=== PATIENT | male | born 1955 | race Caucasian/White ===

== ENCOUNTER 2025-04-05 19:44 | Inpatient (IN) | payer MEDICARE, OTHER ==
[~2025-04-05] VITALS: Ht 172.7 cm; Wt 64.6 kg
[2025-04-05] MEDS: LACTULOSE 20G/30ML UDC PO NR (03:00)
[2025-04-05 21:19] LABS: BASOPHILS % 0.2 % (0.0-2.0); EOSINOPHILS % 0.0 % (0.0-5.0); HEMATOCRIT. 29.3 % (42.0-52.0); HEMOGLOBIN. 9.5 g/dL (14.0-18.0); LYMPHOCYTES % 8.0 % (20.0-50.0); MEAN PLATELET VOLUME 8.0 fl (7.4-10.4); MONOCYTES % 7.5 % (2.0-8.0); NEUTROPHILS % 84.3 % (40.0-76.0); PLATELET 259 x1000/uL (130-400); RED BLOOD CELL COUNT 2.92 mill/uL (4.7-6.1); RED CELL DISTRIBUTION WIDTH 15.3 % (11.6-14.6)
[2025-04-05 21:36] LABS: CREATININE 1.9 mg/dL (0.6-1.3); UREA NITROGEN BLOOD 25 mg/dL (9-23)
[2025-04-05 21:37] LABS: ETHANOL BLOOD < 10 mg/dL (<10)
[2025-04-05 21:49] LABS: TROPONIN I HIGH SENSITIVITY 105 ng/L (3.0-53)
[2025-04-05] MEDS: SODIUM CHLORIDE 0.9% 1,000 ML IV ONE (22:49)
[2025-04-05] MEDS: CEFTRIAXONE 1GM/50ML 50 ML IV SCH (22:51)
[2025-04-05] MEDS: SODIUM CHLORIDE 0.9% (SEPSIS BOLUS) IV ONE (22:53)
[2025-04-05] MEDS: ASPIRIN 325MG EC TABLET PO SCH (22:56)
[2025-04-05] MEDS ORDERED: GUAIFENESIN 200MG/10ML SUGAR FREE UDC PO PRN (23:00)
[2025-04-05] MEDS ORDERED: IPRATROPIUM/ALBUTEROL 0.5-3(2.5)MG/3ML NEB HHN PRN (23:00)
[2025-04-05] MEDS ORDERED: CLONIDINE 0.1MG TABLET PO PRN (23:00)
[2025-04-05] MEDS ORDERED: ACETAMINOPHEN 325MG TABLET PO PRN (23:00)
[2025-04-05] MEDS ORDERED: DEXT 5%/0.45% NACL 1000ML 1,000 ML IV SCH (23:00)
[2025-04-05] MEDS ORDERED: DOCUSATE SODIUM 100MG CAPSULE PO PRN (23:00)
[2025-04-05 23:22] LABS: LACTIC ACID 3.6 mmol/L (0.4-2.0)
[2025-04-05] MEDS: AZITHROMYCIN 500MG/250ML 250 ML IV SCH (23:25)
[2025-04-05] MEDS: FAMOTIDINE 20MG/2ML VIAL IV SCH (23:43)
[2025-04-06] VITALS (39 sets, daily range): BP systolic 79–112; BP diastolic 49–88; PULSE 77–161; RESP 12–36; TEMP 35–37.3; O2SAT 45–100
[2025-04-06] MEDS ORDERED: LACTULOSE 20G/30ML UDC PO ONE
[2025-04-06 00:07] LABS: PHOSPHORUS 2.5 mg/dL (2.5-4.9)
[2025-04-06 00:08] LABS: CREATININE 1.9 mg/dL (0.6-1.3); TRIGLYCERIDE 135 mg/dL (0-150); UREA NITROGEN BLOOD 25 mg/dL (9-23)
[2025-04-06 00:09] LABS: ASPARTATE AMINOTRANSFERASE 91 IU/L (<34); LDL CHOLESTEROL 29 mg/dL (5-100)
[2025-04-06 00:10] LABS: BILIRUBIN DIRECT 0.6 mg/dL (<=3.0); BILIRUBIN TOTAL 1.0 mg/dL (0.1-1.0); PROTEIN TOTAL 5.7 g/dL (6.0-8.3)
[2025-04-06 00:12] LABS: T4 FREE 1.35 ng/dL (0.89-1.76)
[2025-04-06] MEDS ORDERED: HYDRALAZINE 20MG/ML VIAL IV SCH (00:30)
[2025-04-06 00:43] LABS: CLARITY URINE CLOUDY (CLEAR); COLOR URINE DARK YELLOW (YELLOW); GLUCOSE URINE NEGATIVE (NEGATIVE); KETONES URINE TRACE (NEGATIVE); LEUKOCYTE ESTERASE URINE 1+ (NEGATIVE); NITRITE URINE NEGATIVE (NEGATIVE); OCCULT BLOOD URINE 3+ (NEGATIVE); PH URINE 5.0 (4.5-8.0); PROTEIN URINE 2+ (NEGATIVE); SPECIFIC GRAVITY URINE 1.027 (1.005-1.030); UROBILINOGEN URINE 1.0 E.U./dL (0.2-1.0)
[2025-04-06] MEDS ORDERED: SODIUM BICARBONATE 8.4% 50MEQ/50ML SYR IV NR (00:45)
[2025-04-06] MEDS: SODIUM CHLORIDE 0.9% 1,000 ML IV ONE (00:52)
[2025-04-06] MEDS: MAGNESIUM 4 G PREMIX 100 ML IV NR (00:59)
[2025-04-06] MEDS: CALCIUM GLUCONATE 100MG/ML 10ML VIAL IV NR (00:59)
[2025-04-06] MEDS: SODIUM BICARBONATE 8.4% 50MEQ/50ML SYR IV NR ×3 (01:15→10:34)
[2025-04-06 01:17] LABS: *AMPHETAMINES SCREEN URINE NEGATIVE (NEGATIVE); *BARBITURATES SCREEN URINE NEGATIVE (NEGATIVE); *BENZODIAZEPINES SCREEN URINE NEGATIVE (NEGATIVE); *COCAINE SCREEN URINE NEGATIVE (NEGATIVE); CANNABINOID URINE SCREEN NEGATIVE (NEGATIVE); ECSTASY MDMA SCREEN URINE NEGATIVE (NEGATIVE); METHADONE URINE SCREEN NEGATIVE (NEGATIVE); OPIATES URINE SCREEN NEGATIVE (NEGATIVE); PHENCYCLIDINE URINE SCREEN NEGATIVE (NEGATIVE)
[2025-04-06] MEDS ORDERED: VANCOMYCIN 1GM/200ML PMX (BAXTER) IV NR (01:30)
[2025-04-06 01:40] LABS: SODIUM URINE RANDOM < 10 mEq/L
[2025-04-06] MEDS: NOREPINEPHRINE 8MG/250ML PMX 250 ML IV PRN (01:45)
[2025-04-06 01:50] LABS: INR 1.9
[2025-04-06] MEDS: PIPERACILLIN/TAZO 3.375G/50ML 50 ML IV SCH (02:00)
[2025-04-06] MEDS ORDERED: IPRATROPIUM/ALBUTEROL 0.5-3(2.5)MG/3ML NEB HHN SCH (02:00)
[2025-04-06 02:23] LABS: BACTERIA URINE 1+; RBC URINE 50-100 /hpf (0-2); SQUAMOUS EPITHELIAL CELL URINE 2+ /lpf (RARE/1+)
[2025-04-06 02:28] LABS: OSMOLALITY URINE 323 mOsm/kg (500-850)
[2025-04-06] MEDS: VANCOMYCIN 1GM/200ML PMX (BAXTER) IV NR (03:00)
[2025-04-06] MEDS: BLOOD SUGAR DIAGNOSTIC STRIP TEST SCH (04:00)
[2025-04-06] MEDS: FOLIC ACID 1 MG, THIAMINE HCL 100 MG, MVI, ADULT NO.1 10 ML in DEXTROSE 5% WATER 1,000 ML IV NR (04:00)
[2025-04-06] MEDS: SODIUM CHLORIDE 0.9% 1,000 ML IV SCH (05:07)
[2025-04-06] MEDS ORDERED: LIDOCAINE HCL 1% 10 MG/ML 10ML VIAL ONE (08:18)
[2025-04-06] MEDS ORDERED: ASPIRIN 81MG EC TABLET PO SCH (09:00)
[2025-04-06] MEDS: MULTIVITAMINS,THER W-MINERALS TABLET PO SCH (09:16)
[2025-04-06] MEDS: ENOXAPARIN 30MG/0.3ML SYR SUBCUT SCH (09:16)
[2025-04-06] MEDS: ASPIRIN 81MG EC TABLET PO SCH (09:16)
[2025-04-06] MEDS: FOLIC ACID 1MG TABLET PO SCH (09:16)
[2025-04-06] MEDS: THIAMINE HCL 100MG TABLET PO SCH (09:16)
[2025-04-06] MEDS: FERROUS SULFATE 325MG TABLET PO SCH (09:16)
[2025-04-06 11:16] LABS: HEMATOCRIT. 26.6 % (42.0-52.0); HEMOGLOBIN. 8.5 g/dL (14.0-18.0); MEAN PLATELET VOLUME 7.5 fl (7.4-10.4); PLATELET 233 x1000/uL (130-400); RED BLOOD CELL COUNT 2.67 mill/uL (4.7-6.1); RED CELL DISTRIBUTION WIDTH 15.0 % (11.6-14.6)
[2025-04-06 11:53] LABS: CREATININE 1.4 mg/dL (0.6-1.3); UREA NITROGEN BLOOD 19 mg/dL (9-23)
[2025-04-06] MEDS: SODIUM BICARBONATE 100 MEQ in DEXTROSE 5% WATER 900 ML IV SCH (12:08)
[2025-04-06] MEDS: VANCOMYCIN 1GM PMX (XELLIA) 200 ML IV SCH (12:19)
[2025-04-06 12:36] LABS: TROPONIN I HIGH SENSITIVITY 104 ng/L (3.0-53)
[2025-04-06 13:16] LABS: BAND% 7.0 % (1.0-6.0); LYMPHOCYTES % MANUAL 3.0 % (20.0-50.0); MONOCYTES % MANUAL 3.0 % (2.0-8.0); NEUTROPHILS % MANUAL 87.0 % (45.0-75.0)
[2025-04-06 13:17] LABS: PLATELET ESTIMATE NORMAL
[2025-04-06 13:18] LABS: HEPATITIS C AB NON REACTIVE (Neg) (Negative)
[2025-04-06] MEDS: MAGNESIUM 1 G PREMIX 100 ML IV NR (13:41)
[2025-04-06] MEDS: KCL 20MEQ/100ML PREMIX 100 ML IV NR (13:42)
[2025-04-06 15:08] LABS: TROPONIN I HIGH SENSITIVITY 95 ng/L (3.0-53)
[2025-04-06] MEDS: CALCIUM GLUCONATE 1GM PREMIX 50 ML IV NR (15:33)
[2025-04-06 15:54] LABS: TROPONIN I HIGH SENSITIVITY 119 ng/L (3.0-53)
[2025-04-06 17:43] LABS: CREATININE 1.5 mg/dL (0.6-1.3); UREA NITROGEN BLOOD 18 mg/dL (9-23)
[2025-04-06 18:02] LABS: TROPONIN I HIGH SENSITIVITY 137 ng/L (3.0-53)
[2025-04-06] MEDS: ACETAMINOPHEN 325MG TABLET PO PRN (18:03)
[2025-04-06] MEDS ORDERED: CALCIUM GLUCONATE 100MG/ML 10ML VIAL IV ONE (19:45)
[2025-04-06] MEDS: MAGNESIUM 1 G PREMIX 100 ML IV SCH (20:11)
[2025-04-06] MEDS: CALCIUM GLUCONATE 1GM PREMIX 50ML IV SCH (20:47)
[2025-04-06 21:16] LABS: TROPONIN I HIGH SENSITIVITY 162 ng/L (3.0-53)
[2025-04-07] VITALS (58 sets, daily range): BP systolic 84–122; BP diastolic 63–105; PULSE 86–126; RESP 15–33; TEMP 36.2–37.3; O2SAT 71–100
[2025-04-07 06:30] LABS: CREATININE 1.5 mg/dL (0.6-1.3); UREA NITROGEN BLOOD 20 mg/dL (9-23)
[2025-04-07 06:50] LABS: BASOPHILS % 0.0 % (0.0-2.0); EOSINOPHILS % 0.0 % (0.0-5.0); HEMATOCRIT. 26.8 % (42.0-52.0); HEMOGLOBIN. 8.5 g/dL (14.0-18.0); LYMPHOCYTES % 16.1 % (20.0-50.0); MEAN PLATELET VOLUME 8.0 fl (7.4-10.4); MONOCYTES % 12.1 % (2.0-8.0); NEUTROPHILS % 71.8 % (40.0-76.0); PLATELET 215 x1000/uL (130-400); RED BLOOD CELL COUNT 2.66 mill/uL (4.7-6.1); RED CELL DISTRIBUTION WIDTH 14.7 % (11.6-14.6)
[2025-04-07] MEDS ORDERED: NOREPINEPHRINE 8MG/250ML PMX 250 ML IV PRN (08:42)
[2025-04-07] MEDS: BLOOD SUGAR DIAGNOSTIC STRIP TEST SCH (08:44)
[2025-04-07] MEDS: POTASSIUM CHLORIDE 20MEQ/PACKET PO NR (08:47)
[2025-04-07] MEDS: CALCIUM 1250MG TABLET (500MG ELEMENTAL CALCIUM) PO SCH (08:48)
[2025-04-07] MEDS: TAMSULOSIN HCL 0.4MG SR CAPSULE PO SCH (08:48)
[2025-04-07] MEDS: CALCITRIOL 0.25MCG CAPSULE PO SCH (08:49)
[2025-04-07] MEDS: VANCOMYCIN 1G PREMIX 200 ML IV SCH (08:51)
[2025-04-07] MEDS: SODIUM BICARBONATE 650MG TABLET PO SCH (12:59)
[2025-04-07] MEDS: LACTATED RINGERS 1,000 ML IV SCH (18:57)
[2025-04-07 22:05] LABS: TROPONIN I HIGH SENSITIVITY 229 ng/L (3.0-53)
[2025-04-08] VITALS (33 sets, daily range): BP systolic 96–131; BP diastolic 70–112; PULSE 77–141; RESP 11–26; TEMP 36.2–36.9; O2SAT 90–100
[2025-04-08 05:40] LABS: BASOPHILS % 0.4 % (0.0-2.0); EOSINOPHILS % 0.1 % (0.0-5.0); HEMATOCRIT. 23.0 % (42.0-52.0); HEMOGLOBIN. 7.6 g/dL (14.0-18.0); LYMPHOCYTES % 22.2 % (20.0-50.0); MEAN PLATELET VOLUME 8.1 fl (7.4-10.4); MONOCYTES % 14.6 % (2.0-8.0); NEUTROPHILS % 62.7 % (40.0-76.0); PLATELET 158 x1000/uL (130-400); RED BLOOD CELL COUNT 2.33 mill/uL (4.7-6.1); RED CELL DISTRIBUTION WIDTH 15.0 % (11.6-14.6)
[2025-04-08 05:56] LABS: CREATININE 0.8 mg/dL (0.6-1.3); UREA NITROGEN BLOOD 14 mg/dL (9-23)
[2025-04-09] VITALS: BP 128/101; PULSE 123; RESP 20; TEMP 36.5; O2SAT 97
[2025-04-09 04:00] VITALS: BP 113/86; PULSE 74; RESP 19; TEMP 36.2; O2SAT 98
[2025-04-09] MEDS: DEXTROSE 50% WATER 50ML SYRINGE IV PRN (05:43)
[2025-04-09 08:00] VITALS: BP 119/83; PULSE 96; RESP 20; TEMP 36.2; O2SAT 98
[2025-04-09 11:29] LABS: PLATELET 166 x1000/uL (130-400); RED BLOOD CELL COUNT 2.40 mill/uL (4.7-6.1); RED CELL DISTRIBUTION WIDTH 15.2 % (11.6-14.6)
[2025-04-09 11:43] LABS: CREATININE 0.6 mg/dL (0.6-1.3); UREA NITROGEN BLOOD 10 mg/dL (9-23)
[2025-04-09 12:00] VITALS: BP 101/68; PULSE 97; RESP 20; TEMP 36.2; O2SAT 97
[2025-04-09 16:00] VITALS: BP 106/80; PULSE 92; RESP 20; TEMP 36.2; O2SAT 98
[2025-04-09 20:00] VITALS: BP 116/89; PULSE 84; RESP 18; TEMP 36.3; O2SAT 98
[2025-04-10 08:00] VITALS: BP 106/75; PULSE 101; RESP 20; TEMP 36.1; O2SAT 99
[2025-04-10 08:18] LABS: CREATININE 0.5 mg/dL (0.6-1.3); UREA NITROGEN BLOOD 6 mg/dL (9-23)
[2025-04-10] MEDS ORDERED: POTASSIUM CHLORIDE 40 MEQ in DEXT 5% WATER 230 ML IV ONE (09:00)
[2025-04-10 12:00] VITALS: BP 109/87; PULSE 89; RESP 18; TEMP 36.1; O2SAT 99
[2025-04-10 16:00] VITALS: BP 115/73; PULSE 89; RESP 19; TEMP 36.1; O2SAT 100
[2025-04-10 16:11] LABS: PLATELET 164 x1000/uL (130-400); RED BLOOD CELL COUNT 2.42 mill/uL (4.7-6.1); RED CELL DISTRIBUTION WIDTH 15.5 % (11.6-14.6)
[2025-04-10] MEDS: SODIUM CHLORIDE 0.45% 1,000 ML IV SCH (17:39)
[2025-04-10] MEDS: KCL 20MEQ/100ML X 2 FOR TOTAL KCL 40MEQ/200ML IV SCH ×2 (17:42→21:00)
[2025-04-10 20:00] VITALS: BP 120/92; PULSE 97; RESP 19; TEMP 36.3; O2SAT 98
[2025-04-11] VITALS: BP 140/109; PULSE 50; RESP 19; TEMP 36.4; O2SAT 97
[2025-04-11 04:00] VITALS: BP 125/95; PULSE 72; RESP 19; TEMP 36.2; O2SAT 95
[2025-04-11 07:09] LABS: CREATININE 0.5 mg/dL (0.6-1.3)
[2025-04-11 07:11] LABS: UREA NITROGEN BLOOD 5 mg/dL (9-23)
[2025-04-11 07:14] LABS: HEMATOCRIT. 23.5 % (42.0-52.0); HEMOGLOBIN. 7.7 g/dL (14.0-18.0); MEAN PLATELET VOLUME 7.7 fl (7.4-10.4); PLATELET 162 x1000/uL (130-400); RED BLOOD CELL COUNT 2.36 mill/uL (4.7-6.1); RED CELL DISTRIBUTION WIDTH 15.9 % (11.6-14.6)
[2025-04-11 08:00] VITALS: BP 122/91; PULSE 90; RESP 18; TEMP 35.8; O2SAT 97
[2025-04-11 12:00] VITALS: BP 125/95; PULSE 81; RESP 16; TEMP 36.2; O2SAT 96
[2025-04-11 16:33] LABS: LYMPHOCYTES % MANUAL 17.0 % (20.0-50.0); MONOCYTES % MANUAL 14.0 % (2.0-8.0); NEUTROPHILS % MANUAL 69.0 % (45.0-75.0); PLATELET ESTIMATE NORMAL
[2025-04-11 17:09] VITALS: BP 126/90; PULSE 99; RESP 16; TEMP 36.2; O2SAT 96
[2025-04-11 20:00] VITALS: BP 165/109; PULSE 102; RESP 20; TEMP 35.8; O2SAT 97
[2025-04-12] VITALS (7 sets, daily range): BP systolic 105–168; BP diastolic 70–100; PULSE 84–106; RESP 17–20; TEMP 35.5–36.4; O2SAT 96–99
[2025-04-12] MEDS: MAGNESIUM 1 G PREMIX 100 ML IV NR (05:36)
[2025-04-12] MEDS: MAGNESIUM 1 G PREMIX 100 ML IV SCH (15:00)
== END 2025-04-12 22:27 | DRG 871 ==
LOC: ER 19:44 → CVICU 22:11 → EDBEDREQ 22:27 → EDBEDREQTM 22:27 → ENRESERV 23:15 → EDBEDREQSVC 04-06 01:15 → ENRESERV 04-06 01:30 → 6WST 04-08 16:55
PROVIDERS: ADMIT Internal Medicine; ATTEND Internal Medicine
PROC: 02HV33Z Insertion of Infusion Device into Superior Vena Cava, Percutaneous Approach (ICD-10-PCS; principal; 2025-04-06)
PROC: B548ZZA Ultrasonography of Superior Vena Cava, Guidance (ICD-10-PCS; 2025-04-06)
DX: A41.9 Sepsis, unspecified organism (principal); E43 Unspecified severe protein-calorie malnutrition; L89.153 Pressure ulcer of sacral region, stage 3; N17.0 Acute kidney failure with tubular necrosis; I21.A1 Myocardial infarction type 2; R65.21 Severe sepsis with septic shock; G92.8 Other toxic encephalopathy; G82.50 Quadriplegia, unspecified; J96.01 Acute respiratory failure with hypoxia; I50.33 Acute on chronic diastolic (congestive) heart failure; N12 Tubulo-interstitial nephritis, not specified as acute or chronic; M62.82 Rhabdomyolysis; E87.0 Hyperosmolality and hypernatremia; D68.9 Coagulation defect, unspecified; I13.0 Hypertensive heart and chronic kidney disease with heart failure and stage 1 through stage 4 chronic kidney disease, or unspecified chronic kidney disease; E72.20 Disorder of urea cycle metabolism, unspecified; Z68.1 Body mass index [BMI] 19.9 or less, adult; R64 Cachexia; D63.1 Anemia in chronic kidney disease; E83.51 Hypocalcemia; E83.42 Hypomagnesemia; N18.9 Chronic kidney disease, unspecified; R62.7 Adult failure to thrive; N40.0 Benign prostatic hyperplasia without lower urinary tract symptoms; K21.9 Gastro-esophageal reflux disease without esophagitis; E87.6 Hypokalemia; D53.9 Nutritional anemia, unspecified; G62.1 Alcoholic polyneuropathy; I48.91 Unspecified atrial fibrillation; R73.9 Hyperglycemia, unspecified; D72.810 Lymphocytopenia; D50.9 Iron deficiency anemia, unspecified; F10.20 Alcohol dependence, uncomplicated; N28.1 Cyst of kidney, acquired; K76.0 Fatty (change of) liver, not elsewhere classified; M47.812 Spondylosis without myelopathy or radiculopathy, cervical region; M50.30 Other cervical disc degeneration, unspecified cervical region; R13.10 Dysphagia, unspecified; S14.129A Central cord syndrome at unspecified level of cervical spinal cord, initial encounter; X58.XXXA Exposure to other specified factors, initial encounter; Y93.89 Activity, other specified; Y92.89 Other specified places as the place of occurrence of the external cause; Y99.8 Other external cause status
CPT/HCPCS: 36415; 36573; 71045; 71250; 76770; 80048; 80061; 80076; 80305; 80307; 80320; 80329; 81003; 82140; 82306; 82330; 82533; 82550; 82607; 82728; 82962; 83036; 83540; 83550; 83605; 83735; 83880; 83930; 83935; 83970; 84100; 84134; 84145; 84300; 84439; 84443; 84484; 85025; 85027; 85044; 85379; 86705; 86850; 86900; 87340; 92523; 92610; 93005; 93306; 93970; 93971; 97116; 97162; 97166; 97530; 97535; 99291; A4606; C1725; J0456; J0610; J0696; J1308; J1650; J2003; J2543; J3370; J3411; J3475; J3480; J3490; J7030; J7070; J7120; G0480

== ENCOUNTER 2025-04-12 22:25 | Inpatient (IN) | payer MEDICARE, OTHER ==
[~2025-04-12] VITALS: Ht 172.7 cm; Wt 64.5 kg
[2025-04-12 22:45] VITALS: BP 114/91; PULSE 91; RESP 20; TEMP 36.6404
[2025-04-12] MEDS ORDERED: DOCUSATE SODIUM 100MG CAPSULE PO PRN (23:30)
[2025-04-12] MEDS ORDERED: GUAIFENESIN 200MG/10ML SUGAR FREE UDC PO PRN (23:30)
[2025-04-12] MEDS ORDERED: ACETAMINOPHEN 325MG TABLET PO PRN (23:30)
[2025-04-13] MEDS: BLOOD SUGAR DIAGNOSTIC STRIP TEST SCH (07:00)
[2025-04-13 08:00] VITALS: BP 129/72; PULSE 90; RESP 18; TEMP 36.8; O2SAT 98
[2025-04-13] MEDS ORDERED: ENOXAPARIN 40MG/0.4ML SYR SUBCUT SCH (09:00)
[2025-04-13] MEDS: ASPIRIN 81MG TABLET PO SCH (09:26)
[2025-04-13] MEDS: CALCIUM 1250MG TABLET (500MG ELEMENTAL CALCIUM) PO SCH (09:26)
[2025-04-13] MEDS: FOLIC ACID 1MG TABLET PO SCH (09:26)
[2025-04-13] MEDS: THIAMINE HCL 100MG TABLET PO SCH (09:27)
[2025-04-13] MEDS: CALCITRIOL 0.25MCG CAPSULE PO SCH (09:27)
[2025-04-13] MEDS: FAMOTIDINE 20MG/2ML VIAL IV SCH (09:28)
[2025-04-13] MEDS: FERROUS SULFATE 325MG TABLET PO SCH (09:28)
[2025-04-13] MEDS: ACETAMINOPHEN 325MG TABLET PO PRN (09:38)
[2025-04-13] MEDS: ENOXAPARIN 30MG/0.3ML SYR SUBCUT SCH (09:38)
[2025-04-13] MEDS: MULTIVITAMINS,THER W-MINERALS TABLET PO SCH (09:38)
[2025-04-13] MEDS: TAMSULOSIN HCL 0.4MG SR CAPSULE PO SCH (10:47)
[2025-04-13] MEDS: SODIUM BICARBONATE 650MG TABLET PO SCH (10:47)
[2025-04-13 20:00] VITALS: BP 108/82; PULSE 82; RESP 17; TEMP 36.4; O2SAT 92
[2025-04-13] MEDS: FLUTICASONE PROPIONATE 50MCG/SPRAY BOTTLE BOTHNSTRLS SCH (21:13)
[2025-04-13] MEDS: HEPARIN 5000 UNITS/ML VIAL SUBCUT SCH (21:13)
[2025-04-13 22:23] LABS: BASOPHILS % 0.4 % (0.0-2.0); EOSINOPHILS % 1.3 % (0.0-5.0); HEMATOCRIT. 23.2 % (42.0-52.0); HEMOGLOBIN. 7.4 g/dL (14.0-18.0); LYMPHOCYTES % 23.6 % (20.0-50.0); MEAN PLATELET VOLUME 8.3 fl (7.4-10.4); MONOCYTES % 12.2 % (2.0-8.0); NEUTROPHILS % 62.5 % (40.0-76.0); PLATELET 199 x1000/uL (130-400); RED BLOOD CELL COUNT 2.26 mill/uL (4.7-6.1); RED CELL DISTRIBUTION WIDTH 15.7 % (11.6-14.6)
[2025-04-13 22:41] LABS: CREATININE 0.8 mg/dL (0.6-1.3); UREA NITROGEN BLOOD 7 mg/dL (9-23)
[2025-04-13 22:43] LABS: ASPARTATE AMINOTRANSFERASE 41 IU/L (<34); BILIRUBIN TOTAL 0.6 mg/dL (0.1-1.0); PROTEIN TOTAL 4.7 g/dL (6.0-8.3)
[2025-04-14 06:53] LABS: BASOPHILS % 0.2 % (0.0-2.0); EOSINOPHILS % 1.0 % (0.0-5.0); HEMATOCRIT. 22.6 % (42.0-52.0); HEMOGLOBIN. 7.3 g/dL (14.0-18.0); LYMPHOCYTES % 21.7 % (20.0-50.0); MEAN PLATELET VOLUME 8.0 fl (7.4-10.4); MONOCYTES % 12.1 % (2.0-8.0); NEUTROPHILS % 65.0 % (40.0-76.0); PLATELET 182 x1000/uL (130-400); RED BLOOD CELL COUNT 2.28 mill/uL (4.7-6.1); RED CELL DISTRIBUTION WIDTH 15.5 % (11.6-14.6)
[2025-04-14 07:23] LABS: UREA NITROGEN BLOOD 7 mg/dL (9-23)
[2025-04-14 07:25] LABS: ASPARTATE AMINOTRANSFERASE 37 IU/L (<34); BILIRUBIN TOTAL 0.7 mg/dL (0.1-1.0); FOLIC ACID (FOLATE) SERUM 8.33 ng/mL (>5.38); PROTEIN TOTAL 4.2 g/dL (6.0-8.3)
[2025-04-14 07:51] LABS: VITAMIN B12 SERUM > 2000 pg/mL (211-911)
[2025-04-14 07:55] LABS: CREATININE 0.4 mg/dL (0.6-1.3)
[2025-04-14 08:00] VITALS: BP 113/74; PULSE 67; RESP 17; TEMP 36.3; O2SAT 100
[2025-04-14 08:22] LABS: CLARITY URINE CLOUDY (CLEAR); COLOR URINE DARK YELLOW (YELLOW); GLUCOSE URINE NEGATIVE (NEGATIVE); PH URINE 5.5 (4.5-8.0); PROTEIN URINE 1+ (NEGATIVE); SPECIFIC GRAVITY URINE 1.020 (1.005-1.030)
[2025-04-14 08:23] LABS: KETONES URINE TRACE (NEGATIVE); LEUKOCYTE ESTERASE URINE NEGATIVE (NEGATIVE); NITRITE URINE NEGATIVE (NEGATIVE); OCCULT BLOOD URINE 2+ (NEGATIVE); UROBILINOGEN URINE 0.2 E.U./dL (0.2-1.0)
[2025-04-14 09:26] LABS: HYALINE CASTS URINE TNTC /lpf
[2025-04-14 09:28] LABS: FINE GRANULAR CASTS URINE 0-5 /lpf; SQUAMOUS EPITHELIAL CELL URINE FEW /lpf (RARE/1+)
[2025-04-14 09:30] LABS: BACTERIA URINE TRACE; CALCIUM OXALATE CRYSTALS URINE 2+ /lpf; WBC URINE 0-2 /hpf (0-2)
[2025-04-14] MEDS ORDERED: NALOXONE HCL 0.4MG/ML VIAL IV PRN (10:45)
[2025-04-14] MEDS: HYDROCODONE/ACETAMINOPHEN 5/325MG TABLET PO PRN (17:50)
[2025-04-14 20:00] VITALS: BP 108/82; PULSE 82; RESP 18; TEMP 36.4; O2SAT 98
[2025-04-15 08:00] VITALS: BP 115/85; PULSE 84; RESP 18; TEMP 36.4; O2SAT 98
[2025-04-15 10:55] LABS: BASOPHILS % 0.5 % (0.0-2.0); EOSINOPHILS % 0.7 % (0.0-5.0); HEMATOCRIT. 31.0 % (42.0-52.0); HEMOGLOBIN. 9.5 g/dL (14.0-18.0); LYMPHOCYTES % 23.9 % (20.0-50.0); MEAN PLATELET VOLUME 7.8 fl (7.4-10.4); MONOCYTES % 9.7 % (2.0-8.0); NEUTROPHILS % 65.2 % (40.0-76.0); PLATELET 225 x1000/uL (130-400); RED BLOOD CELL COUNT 2.93 mill/uL (4.7-6.1); RED CELL DISTRIBUTION WIDTH 16.3 % (11.6-14.6)
[2025-04-15 11:06] LABS: INR 1.3
[2025-04-15 11:10] LABS: CREATININE 0.5 mg/dL (0.6-1.3); UREA NITROGEN BLOOD 7 mg/dL (9-23)
[2025-04-15 11:12] LABS: ASPARTATE AMINOTRANSFERASE 41 IU/L (<34); BILIRUBIN DIRECT 0.3 mg/dL (<=3.0); BILIRUBIN TOTAL 0.7 mg/dL (0.1-1.0); PROTEIN TOTAL 4.9 g/dL (6.0-8.3)
[2025-04-15 13:10] LABS: HEPATITIS A AB IGM NEGATIVE (Negative)
[2025-04-15 13:11] LABS: HEPATITIS B CORE AB IGM NEGATIVE (Negative)
[2025-04-15 13:39] LABS: HEPATITIS C AB NON REACTIVE (Neg) (Negative)
[2025-04-15] MEDS: LACTULOSE 20G/30ML UDC PO SCH (13:53)
[2025-04-15 20:00] VITALS: BP 117/86; PULSE 94; RESP 18; TEMP 36.5; O2SAT 98
[2025-04-16 08:00] VITALS: BP 117/91; PULSE 94; RESP 17; TEMP 36.5; O2SAT 97
[2025-04-16 20:00] VITALS: BP 121/85; PULSE 90; RESP 18; TEMP 36.7; O2SAT 98
[2025-04-16 21:22] LABS: BASOPHILS % 1.1 % (0.0-2.0); EOSINOPHILS % 0.7 % (0.0-5.0); HEMATOCRIT. 23.4 % (42.0-52.0); HEMOGLOBIN. 7.4 g/dL (14.0-18.0); LYMPHOCYTES % 18.5 % (20.0-50.0); MEAN PLATELET VOLUME 8.7 fl (7.4-10.4); MONOCYTES % 10.0 % (2.0-8.0); NEUTROPHILS % 69.7 % (40.0-76.0); PLATELET 189 x1000/uL (130-400); RED BLOOD CELL COUNT 2.30 mill/uL (4.7-6.1); RED CELL DISTRIBUTION WIDTH 15.5 % (11.6-14.6)
[2025-04-16 21:37] LABS: CREATININE 0.5 mg/dL (0.6-1.3); UREA NITROGEN BLOOD 9 mg/dL (9-23)
[2025-04-17 08:00] VITALS: BP 115/85; PULSE 93; RESP 19; TEMP 36.6; O2SAT 98
[2025-04-17 20:00] VITALS: BP 133/69; PULSE 89; RESP 18; TEMP 36.1; O2SAT 97
[2025-04-18 08:00] VITALS: BP 133/94; PULSE 90; RESP 20; TEMP 36.4; O2SAT 98
[2025-04-18] MEDS: FUROSEMIDE 40MG/4ML VIAL IVP SCH (11:19)
[2025-04-18] MEDS: LACTULOSE 20G/30ML UDC PO SCH (12:53)
[2025-04-18] MEDS: PANTOPRAZOLE SODIUM 40 MG/VIAL IV SCH (12:53)
[2025-04-18 14:50] LABS: BASOPHILS % 0.4 % (0.0-2.0); EOSINOPHILS % 0.6 % (0.0-5.0); HEMATOCRIT. 25.3 % (42.0-52.0); HEMOGLOBIN. 7.8 g/dL (14.0-18.0); LYMPHOCYTES % 17.5 % (20.0-50.0); MEAN PLATELET VOLUME 8.1 fl (7.4-10.4); MONOCYTES % 10.1 % (2.0-8.0); NEUTROPHILS % 71.4 % (40.0-76.0); PLATELET 246 x1000/uL (130-400); RED BLOOD CELL COUNT 2.47 mill/uL (4.7-6.1); RED CELL DISTRIBUTION WIDTH 15.7 % (11.6-14.6)
[2025-04-18 15:09] LABS: CREATININE 0.6 mg/dL (0.6-1.3); UREA NITROGEN BLOOD 9 mg/dL (9-23)
[2025-04-18 15:11] LABS: ASPARTATE AMINOTRANSFERASE 31 IU/L (<34); BILIRUBIN TOTAL 0.5 mg/dL (0.1-1.0); PROTEIN TOTAL 4.7 g/dL (6.0-8.3)
[2025-04-18 20:00] VITALS: BP 98/65; PULSE 87; RESP 18; TEMP 35.9; O2SAT 100
[2025-04-19 06:30] LABS: BASOPHILS % 0.4 % (0.0-2.0); EOSINOPHILS % 0.8 % (0.0-5.0); HEMATOCRIT. 23.1 % (42.0-52.0); HEMOGLOBIN. 7.4 g/dL (14.0-18.0); LYMPHOCYTES % 20.3 % (20.0-50.0); MEAN PLATELET VOLUME 8.2 fl (7.4-10.4); MONOCYTES % 13.7 % (2.0-8.0); NEUTROPHILS % 64.8 % (40.0-76.0); PLATELET 194 x1000/uL (130-400); RED BLOOD CELL COUNT 2.26 mill/uL (4.7-6.1); RED CELL DISTRIBUTION WIDTH 15.8 % (11.6-14.6)
[2025-04-19 06:56] LABS: CREATININE 0.6 mg/dL (0.6-1.3); UREA NITROGEN BLOOD 10 mg/dL (9-23)
[2025-04-19 06:58] LABS: ASPARTATE AMINOTRANSFERASE 29 IU/L (<34); BILIRUBIN TOTAL 0.5 mg/dL (0.1-1.0); PROTEIN TOTAL 4.4 g/dL (6.0-8.3)
[2025-04-19 08:00] VITALS: BP 122/95; PULSE 89; RESP 17; TEMP 36.5; O2SAT 99
[2025-04-19 20:00] VITALS: BP 133/100; PULSE 92; RESP 16; TEMP 36.1; O2SAT 100
[2025-04-20 08:00] VITALS: BP 108/61; PULSE 75; RESP 18; TEMP 35.6; O2SAT 99
[2025-04-20] MEDS: FUROSEMIDE 40MG TABLET PO SCH (08:36)
[2025-04-20] MEDS: HYDROCODONE/ACETAMINOPHEN 5/325MG TABLET PO PRN (17:31)
[2025-04-20 20:00] VITALS: BP 109/76; PULSE 83; RESP 19; TEMP 36.1; O2SAT 99
[2025-04-20 22:41] LABS: CREATININE 1.2 mg/dL (0.6-1.3); UREA NITROGEN BLOOD 14 mg/dL (9-23)
[2025-04-20 22:43] LABS: ASPARTATE AMINOTRANSFERASE 36 IU/L (<34); BILIRUBIN TOTAL 0.3 mg/dL (0.1-1.0); PROTEIN TOTAL 4.5 g/dL (6.0-8.3)
[2025-04-21 03:58] LABS: BASOPHILS % 0.5 % (0.0-2.0); EOSINOPHILS % 1.1 % (0.0-5.0); HEMATOCRIT. 24.7 % (42.0-52.0); HEMOGLOBIN. 7.9 g/dL (14.0-18.0); LYMPHOCYTES % 22.6 % (20.0-50.0); MEAN PLATELET VOLUME 9.2 fl (7.4-10.4); MONOCYTES % 13.2 % (2.0-8.0); NEUTROPHILS % 62.6 % (40.0-76.0); PLATELET 192 x1000/uL (130-400); RED BLOOD CELL COUNT 2.43 mill/uL (4.7-6.1); RED CELL DISTRIBUTION WIDTH 15.6 % (11.6-14.6)
[2025-04-21 08:00] VITALS: BP 149/79; PULSE 89; RESP 19; TEMP 36.7; O2SAT 98
[2025-04-21 09:23] LABS: BASOPHILS % 0.4 % (0.0-2.0); EOSINOPHILS % 0.8 % (0.0-5.0); HEMATOCRIT. 25.9 % (42.0-52.0); HEMOGLOBIN. 8.4 g/dL (14.0-18.0); LYMPHOCYTES % 20.8 % (20.0-50.0); MEAN PLATELET VOLUME 8.5 fl (7.4-10.4); MONOCYTES % 7.6 % (2.0-8.0); NEUTROPHILS % 70.4 % (40.0-76.0); PLATELET 234 x1000/uL (130-400); RED BLOOD CELL COUNT 2.55 mill/uL (4.7-6.1); RED CELL DISTRIBUTION WIDTH 15.6 % (11.6-14.6)
[2025-04-21 09:38] LABS: CREATININE 1.2 mg/dL (0.6-1.3); UREA NITROGEN BLOOD 17 mg/dL (9-23)
[2025-04-21 09:40] LABS: ASPARTATE AMINOTRANSFERASE 37 IU/L (<34); BILIRUBIN TOTAL 0.4 mg/dL (0.1-1.0); PROTEIN TOTAL 4.6 g/dL (6.0-8.3)
[2025-04-21 20:00] VITALS: BP 116/89; PULSE 72; RESP 16; TEMP 37.1; O2SAT 96
[2025-04-21 23:33] VITALS: BP 116/89; PULSE 72; RESP 16; TEMP 37.1; O2SAT 96
[2025-04-22 08:00] VITALS: BP 113/87; PULSE 85; RESP 17; TEMP 37.1; O2SAT 95
[2025-04-22 09:09] LABS: BASOPHILS % 0.6 % (0.0-2.0); EOSINOPHILS % 1.4 % (0.0-5.0); HEMATOCRIT. 26.2 % (42.0-52.0); HEMOGLOBIN. 8.3 g/dL (14.0-18.0); LYMPHOCYTES % 20.5 % (20.0-50.0); MEAN PLATELET VOLUME 9.2 fl (7.4-10.4); MONOCYTES % 7.8 % (2.0-8.0); NEUTROPHILS % 69.7 % (40.0-76.0); PLATELET 218 x1000/uL (130-400); RED BLOOD CELL COUNT 2.56 mill/uL (4.7-6.1); RED CELL DISTRIBUTION WIDTH 15.8 % (11.6-14.6)
[2025-04-22 09:28] LABS: CREATININE 0.9 mg/dL (0.6-1.3); UREA NITROGEN BLOOD 15 mg/dL (9-23)
[2025-04-22 20:00] VITALS: BP 102/81; PULSE 74; RESP 18; TEMP 36.8; O2SAT 97
[2025-04-23 08:00] VITALS: BP 101/75; PULSE 87; RESP 20; TEMP 35.6; O2SAT 100
[2025-04-23] MEDS: DEXTROSE 50% WATER 50ML SYRINGE IV PRN (12:15)
[2025-04-23 20:00] VITALS: BP 114/85; PULSE 66; RESP 18; TEMP 36.6; O2SAT 98
[2025-04-24 08:00] VITALS: PULSE 68; RESP 18; TEMP 35.6; O2SAT 100
[2025-04-24 12:03] LABS: CREATININE 0.6 mg/dL (0.6-1.3); UREA NITROGEN BLOOD 13 mg/dL (9-23)
[2025-04-24 20:00] VITALS: BP 114/76; PULSE 66; RESP 18; TEMP 36.1; O2SAT 98
[2025-04-24] MEDS: SILVER SULFADIAZINE 1% CREAM 25GM TOP SCH (22:49)
[2025-04-25 07:04] LABS: CREATININE 0.6 mg/dL (0.6-1.3)
[2025-04-25 07:06] LABS: UREA NITROGEN BLOOD 15 mg/dL (9-23)
[2025-04-25 07:11] LABS: BASOPHILS % 0.1 % (0.0-2.0); EOSINOPHILS % 1.3 % (0.0-5.0); HEMATOCRIT. 27.0 % (42.0-52.0); HEMOGLOBIN. 8.7 g/dL (14.0-18.0); LYMPHOCYTES % 15.2 % (20.0-50.0); MEAN PLATELET VOLUME 8.3 fl (7.4-10.4); MONOCYTES % 8.5 % (2.0-8.0); NEUTROPHILS % 74.9 % (40.0-76.0); PLATELET 179 x1000/uL (130-400); RED BLOOD CELL COUNT 2.66 mill/uL (4.7-6.1); RED CELL DISTRIBUTION WIDTH 15.3 % (11.6-14.6)
[2025-04-25 08:00] VITALS: BP 110/82; PULSE 63; RESP 18; TEMP 36.1; O2SAT 100
[2025-04-25] MEDS ORDERED: SODIUM CHLORIDE 0.45% 500 ML IV ONE (08:00)
[2025-04-25] MEDS: FUROSEMIDE 20MG TABLET PO SCH (08:17)
[2025-04-25 12:48] VITALS: BP 105/59; PULSE 67; O2SAT 94
== END 2025-04-25 12:50 | disposition short-term general hospital (02) | DRG 91 ==
PROVIDERS: ADMIT Physical Medicine & Rehabilitation Spinal Cord Injury Medicine; ATTEND Internal Medicine
DX: G92.8 Other toxic encephalopathy (principal); A41.9 Sepsis, unspecified organism; L89.153 Pressure ulcer of sacral region, stage 3; E43 Unspecified severe protein-calorie malnutrition; G82.50 Quadriplegia, unspecified; I21.4 Non-ST elevation (NSTEMI) myocardial infarction; N17.0 Acute kidney failure with tubular necrosis; R65.21 Severe sepsis with septic shock; I50.30 Unspecified diastolic (congestive) heart failure; M62.82 Rhabdomyolysis; I13.0 Hypertensive heart and chronic kidney disease with heart failure and stage 1 through stage 4 chronic kidney disease, or unspecified chronic kidney disease; E72.20 Disorder of urea cycle metabolism, unspecified; E87.0 Hyperosmolality and hypernatremia; E87.20 Acidosis, unspecified; N39.0 Urinary tract infection, site not specified; D68.9 Coagulation defect, unspecified; L97.419 Non-pressure chronic ulcer of right heel and midfoot with unspecified severity; L97.429 Non-pressure chronic ulcer of left heel and midfoot with unspecified severity; F10.20 Alcohol dependence, uncomplicated; R13.10 Dysphagia, unspecified; G62.1 Alcoholic polyneuropathy; R53.81 Other malaise; R26.9 Unspecified abnormalities of gait and mobility; D53.9 Nutritional anemia, unspecified; E20.9 Hypoparathyroidism, unspecified; E86.9 Volume depletion, unspecified; E87.6 Hypokalemia; G89.29 Other chronic pain; I25.2 Old myocardial infarction; K21.9 Gastro-esophageal reflux disease without esophagitis; K29.70 Gastritis, unspecified, without bleeding; M47.812 Spondylosis without myelopathy or radiculopathy, cervical region; M47.816 Spondylosis without myelopathy or radiculopathy, lumbar region; M51.369 Other intervertebral disc degeneration, lumbar region without mention of lumbar back pain or lower extremity pain; N18.9 Chronic kidney disease, unspecified; N40.0 Benign prostatic hyperplasia without lower urinary tract symptoms; E61.1 Iron deficiency; I89.0 Lymphedema, not elsewhere classified; K57.30 Diverticulosis of large intestine without perforation or abscess without bleeding; K76.0 Fatty (change of) liver, not elsewhere classified; S14.129D Central cord syndrome at unspecified level of cervical spinal cord, subsequent encounter; Z78.1 Physical restraint status
CPT/HCPCS: 36415; 70496; 70498; 74176; 76700; 80048; 80053; 80076; 81003; 82140; 82270; 82306; 82550; 82607; 82728; 82746; 82962; 83036; 83540; 83550; 84134; 84145; 84443; 85025; 85044; 86705; 86709; 87340; 92523; 92610; 93005; 93923; 93970; 97110; 97112; 97116; 97140; 97162; 97166; 97530; 97535; A4606; J1308; J1644; J1650; J1938; J2470; A5200

== ENCOUNTER 2025-06-05 06:28 | Inpatient (IN) | payer MEDICARE, OTHER ==
[~2025-06-05] VITALS: Ht 172.7 cm; Wt 84.4 kg
[2025-06-05] VITALS (56 sets, daily range): BP systolic 79–121; BP diastolic 12–95; PULSE 64–92; RESP 13–24; TEMP 33.8–36.1; O2SAT 100
[2025-06-05] MEDS ORDERED: CEFEPIME 2GM IN DEXT 5% 100ML IV ONE (06:45)
[2025-06-05] MEDS: CEFEPIME 2,000MG in DEXT 5% WATER 100ML IV SCH (07:00)
[2025-06-05] MEDS: LACTATED RINGERS 1,000 ML IV SCH (07:17)
[2025-06-05] MEDS: NOREPINEPHRINE 8MG/250ML PMX 250 ML IV ONE ×2 (07:26→10:11)
[2025-06-05] MEDS ORDERED: LACTATED RINGERS 500 ML IV SCH (07:30)
[2025-06-05 07:45] LABS: HEMATOCRIT. 25.8 % (42.0-52.0); HEMOGLOBIN. 7.9 g/dL (14.0-18.0); MEAN PLATELET VOLUME 6.8 fl (7.4-10.4); PLATELET 135 x1000/uL (130-400); RED BLOOD CELL COUNT 2.71 mill/uL (4.7-6.1); RED CELL DISTRIBUTION WIDTH 17.2 % (11.6-14.6)
[2025-06-05 08:01] LABS: INR 1.6
[2025-06-05 08:07] LABS: UREA NITROGEN BLOOD 63 mg/dL (9-23)
[2025-06-05 08:09] LABS: ASPARTATE AMINOTRANSFERASE 11 IU/L (<34); BILIRUBIN DIRECT < 0.1 mg/dL (<=3.0); BILIRUBIN TOTAL < 0.2 mg/dL (0.1-1.0); PROTEIN TOTAL 5.0 g/dL (6.0-8.3)
[2025-06-05 08:17] LABS: CREATININE 5.6 mg/dL (0.6-1.3)
[2025-06-05 08:49] LABS: BAND% 8.0 % (1.0-6.0); LYMPHOCYTES % MANUAL 3.0 % (20.0-50.0); MONOCYTES % MANUAL 2.0 % (2.0-8.0); NEUTROPHILS % MANUAL 87.0 % (45.0-75.0); NUCLEATED RED BLOOD CELLS 4 /100 WBC; PLATELET ESTIMATE NORMAL
[2025-06-05] MEDS ORDERED: MAGNESIUM/ALUMINUM HYDROXIDE/SIMETHICONE 30ML UDC PO PRN (09:30)
[2025-06-05] MEDS ORDERED: CEFEPIME 2GM IN DEXT 5% 100ML IV SCH (09:30)
[2025-06-05] MEDS: INSULIN LISPRO 100 UNITS/ML SUBCUT SCH (09:30)
[2025-06-05] MEDS ORDERED: ONDANSETRON HCL 4MG/2ML INJ IV PRN (09:30)
[2025-06-05] MEDS ORDERED: CLONIDINE 0.1MG TABLET PO PRN (09:30)
[2025-06-05] MEDS ORDERED: GUAIFENESIN 200MG/10ML SUGAR FREE UDC PO PRN (09:30)
[2025-06-05] MEDS: BLOOD SUGAR DIAGNOSTIC STRIP TEST SCH (10:10)
[2025-06-05] MEDS: LEVETIRACETAM 1000MG PREMIX 100 ML IV SCH (10:10)
[2025-06-05] MEDS: PANTOPRAZOLE SODIUM 40 MG/VIAL IV SCH (10:10)
[2025-06-05 11:15] LABS: PLATELET 133 x1000/uL (130-400); RED BLOOD CELL COUNT 2.76 mill/uL (4.7-6.1); RED CELL DISTRIBUTION WIDTH 17.9 % (11.6-14.6)
[2025-06-05] MEDS ORDERED: MORPHINE SULFATE 2 MG/ML INJ (NOT FOR IM USE) IV NR (11:30)
[2025-06-05 11:31] LABS: INR 1.7; UREA NITROGEN BLOOD 51 mg/dL (9-23)
[2025-06-05 11:43] LABS: CREATININE 5.4 mg/dL (0.6-1.3)
[2025-06-05 11:44] LABS: PHOSPHORUS 10.7 mg/dL (2.5-4.9)
[2025-06-05 11:45] LABS: CLARITY URINE CLEAR (CLEAR); COLOR URINE YELLOW (YELLOW); GLUCOSE URINE NEGATIVE (NEGATIVE); KETONES URINE TRACE (NEGATIVE); LEUKOCYTE ESTERASE URINE 1+ (NEGATIVE); NITRITE URINE NEGATIVE (NEGATIVE); OCCULT BLOOD URINE 2+ (NEGATIVE); PH URINE 5.5 (4.5-8.0); PROTEIN URINE NEGATIVE (NEGATIVE); SPECIFIC GRAVITY URINE 1.015 (1.005-1.030); UROBILINOGEN URINE 0.2 E.U./dL (0.2-1.0)
[2025-06-05] MEDS: SODIUM BICARBONATE 150 MEQ in DEXTROSE 5% WATER 850 ML IV ONE (11:59)
[2025-06-05] MEDS: VANCOMYCIN 1.5GM PMX (XELLIA) 300 ML IV SCH (11:59)
[2025-06-05 12:00] LABS: *AMPHETAMINES SCREEN URINE NEGATIVE (NEGATIVE); *BARBITURATES SCREEN URINE NEGATIVE (NEGATIVE); *BENZODIAZEPINES SCREEN URINE NEGATIVE (NEGATIVE); *COCAINE SCREEN URINE NEGATIVE (NEGATIVE)
[2025-06-05 12:01] LABS: CANNABINOID URINE SCREEN NEGATIVE (NEGATIVE); ECSTASY MDMA SCREEN URINE NEGATIVE (NEGATIVE); METHADONE URINE SCREEN NEGATIVE (NEGATIVE); OPIATES URINE SCREEN NEGATIVE (NEGATIVE); PHENCYCLIDINE URINE SCREEN NEGATIVE (NEGATIVE)
[2025-06-05] MEDS: ENOXAPARIN 80MG/0.8ML SYR SUBCUT SCH (12:02)
[2025-06-05 12:09] LABS: SQUAMOUS EPITHELIAL CELL URINE FEW /lpf (RARE/1+)
[2025-06-05 12:13] LABS: BACTERIA URINE NONE SEEN
[2025-06-05 12:14] LABS: HEPATITIS C AB NON REACTIVE (Neg) (Negative)
[2025-06-05 13:44] LABS: BG BASE EXCESS -24.8 mmol/L (-2.0-3.0); BG CARBOXYHEMOGLOBIN 0.1 % (0.5-1.5); BG DEOXYHEMOGLOBIN 1.2 % (0.0-5.0); BG FLOW(L/min) 4.00 L/min; BG FRACTION INSPIRED OXYGEN 36; BG HCO3 ACT 2.6 mmol/L (21.0-28.0); BG METHEMOGLOBIN 0.1 % (0.5-1.5); BG OXYGEN SATURATION 98.8 % (94.0-98.0); BG OXYHEMOGLOBIN 98.6 % (94.0-98.0); BG PCO2 8.6 mmHg (35.0-48.0); BG PH 7.101 (7.350-7.450); BG PO2 170.1 mmHg (83.0-108.0); BG SAMPLE SITE LEFT RADIAL; BG TOTAL HEMOGLOBIN 7.7 g/dL (13.5-17.5); BG VENT MODE NASAL CANNULA
[2025-06-05] MEDS: SODIUM BICARBONATE 8.4% 50MEQ/50ML SYR IV NR (14:45)
[2025-06-05] MEDS: MAGNESIUM 2 G PREMIX 50 ML IV NR (16:38)
[2025-06-05 17:35] LABS: CREATINE KINASE MB FRACTION 6.7 ng/mL (0.5-3.6)
[2025-06-05 17:53] LABS: TROPONIN I HIGH SENSITIVITY 78 ng/L (3.0-53)
[2025-06-05] MEDS: LACTULOSE 20G/30ML UDC NG SCH (18:06)
[2025-06-05] MEDS: SODIUM BICARBONATE 150 MEQ in DEXTROSE 5% WATER 850 ML IV SCH (20:05)
[2025-06-06] VITALS (99 sets, daily range): BP systolic 64–121; BP diastolic 47–91; PULSE 84–118; RESP 8–26; TEMP 34.1–37.3; O2SAT 89–100
[2025-06-06 00:37] LABS: CREATINE KINASE MB FRACTION 6.7 ng/mL (0.5-3.6)
[2025-06-06 00:42] LABS: TROPONIN I HIGH SENSITIVITY 83.0 ng/L (3.0-53)
[2025-06-06] MEDS: NOREPINEPHRINE 8MG/250ML PMX 250 ML IV PRN (05:08)
[2025-06-06 05:30] LABS: PLATELET 129 x1000/uL (130-400); RED BLOOD CELL COUNT 2.37 mill/uL (4.7-6.1); RED CELL DISTRIBUTION WIDTH 16.2 % (11.6-14.6)
[2025-06-06 06:12] LABS: CREATININE 4.7 mg/dL (0.6-1.3); UREA NITROGEN BLOOD 55 mg/dL (9-23)
[2025-06-06 06:14] LABS: ASPARTATE AMINOTRANSFERASE 11 IU/L (<34); BILIRUBIN DIRECT < 0.1 mg/dL (<=3.0); BILIRUBIN TOTAL 0.2 mg/dL (0.1-1.0); PHOSPHORUS 7.9 mg/dL (2.5-4.9); PROTEIN TOTAL 4.4 g/dL (6.0-8.3)
[2025-06-06] MEDS: CEFEPIME 2GM/100ML 100 ML IV SCH (09:39)
[2025-06-06 10:55] LABS: BG BASE EXCESS -8.7 mmol/L (-2.0-3.0); BG CARBOXYHEMOGLOBIN 1.5 % (0.5-1.5); BG DEOXYHEMOGLOBIN 1.3 % (0.0-5.0); BG FRACTION INSPIRED OXYGEN 21; BG HCO3 ACT 13.1 mmol/L (21.0-28.0); BG METHEMOGLOBIN 1.1 % (0.5-1.5); BG OXYGEN SATURATION 98.7 % (94.0-98.0); BG OXYHEMOGLOBIN 96.1 % (94.0-98.0); BG PCO2 16.6 mmHg (35.0-48.0); BG PH 7.516 (7.350-7.450); BG PO2 118.1 mmHg (83.0-108.0); BG SAMPLE SITE RIGHT RADIAL; BG TOTAL HEMOGLOBIN 6.9 g/dL (13.5-17.5); BG VENT MODE ROOM AIR
[2025-06-06] MEDS ORDERED: POTASSIUM CHLORIDE 20MEQ TABLET SR PO SCH (11:00)
[2025-06-06] MEDS: CALCIUM ACETATE 667MG CAPSULE NG SCH (11:25)
[2025-06-06] MEDS: SODIUM BICARBONATE 8.4% 50MEQ/50ML SYR IV SCH (11:25)
[2025-06-06] MEDS: KCL 20MEQ/100ML PREMIX 100 ML IV SCH (11:26)
[2025-06-06] MEDS: POTASSIUM CHLORIDE 20MEQ/PACKET PO NR (11:52)
[2025-06-06] MEDS: LACTATED RINGERS 500 ML IV ONE (11:52)
[2025-06-06] MEDS: INSULIN LISPRO 100 UNITS/ML SUBCUT SCH (12:00)
[2025-06-06] MEDS: BLOOD SUGAR DIAGNOSTIC STRIP TEST SCH (12:37)
[2025-06-06] MEDS: SODIUM BICARBONATE 50 MEQ in DEXTROSE 5% WATER 950 ML IV SCH (15:33)
[2025-06-06] MEDS ORDERED: LACTATED RINGERS 1,000 ML IV SCH (16:00)
[2025-06-06 19:34] LABS: PLATELET 100 x1000/uL (130-400); RED BLOOD CELL COUNT 2.58 mill/uL (4.7-6.1); RED CELL DISTRIBUTION WIDTH 15.5 % (11.6-14.6)
[2025-06-06 22:42] LABS: CREATININE 4.1 mg/dL (0.6-1.3)
[2025-06-06 22:43] LABS: UREA NITROGEN BLOOD 34 mg/dL (9-23)
[2025-06-07] VITALS (84 sets, daily range): BP systolic 79–127; BP diastolic 57–98; PULSE 59–106; RESP 0–23; TEMP 36.4–36.9; O2SAT 99–100
[2025-06-07 05:07] LABS: CREATININE 3.7 mg/dL (0.6-1.3)
[2025-06-07 05:08] LABS: UREA NITROGEN BLOOD 43.0 mg/dL (9-23)
[2025-06-07] MEDS: KCL 20MEQ/100ML PREMIX 100 ML IV NR (06:20)
[2025-06-07] MEDS: POTASSIUM CHLORIDE 20MEQ/PACKET PO NR (06:20)
[2025-06-07] MEDS ORDERED: DEXT 5% WATER + KCL 40MEQ/L 1,000 ML IV SCH (09:00)
[2025-06-07] MEDS: CITRIC ACID/SODIUM CITRATE SOLN 30ML UDC PO SCH (13:20)
[2025-06-07] MEDS: POTASSIUM CHLORIDE 40 MEQ in DEXTROSE 5% WATER 980 ML IV SCH (13:21)
[2025-06-07] MEDS: VANCOMYCIN 750MG/150ML (BAXTER) IV NR (13:22)
[2025-06-07] MEDS: MEROPENEM 500MG/50ML 50 ML IV SCH (18:50)
[2025-06-08] VITALS (67 sets, daily range): BP systolic 86–125; BP diastolic 59–104; PULSE 50–82; RESP 8–19; TEMP 36.6–37.1; O2SAT 95–100
[2025-06-08 06:08] LABS: PLATELET 64 x1000/uL (130-400); RED BLOOD CELL COUNT 2.66 mill/uL (4.7-6.1); RED CELL DISTRIBUTION WIDTH 16.2 % (11.6-14.6)
[2025-06-08 07:36] LABS: PHOSPHORUS 5.0 mg/dL (2.5-4.9)
[2025-06-08 07:41] LABS: CREATININE 2.9 mg/dL (0.6-1.3); UREA NITROGEN BLOOD 41.0 mg/dL (9-23)
[2025-06-08] MEDS: IOHEXOL-300 100 ML BOTTLE ONE (08:11)
[2025-06-08] MEDS: VANCOMYCIN 1.5GM/250ML 250 ML IV STA (08:11)
[2025-06-08] MEDS: POTASSIUM CHLORIDE 20MEQ/PACKET PO NR (09:07)
[2025-06-08] MEDS: IOHEXOL-350 100 ML BOTTLE ONE (16:33)
[2025-06-08] MEDS: VANCOMYCIN 750MG/150ML (BAXTER) IV SCH (18:16)
[2025-06-09] VITALS (69 sets, daily range): BP systolic 76–160; BP diastolic 57–137; PULSE 55–75; RESP 9–22; TEMP 36.1–36.8; O2SAT 98–100
[2025-06-09 07:00] LABS: BASOPHILS % 0.2 % (0.0-2.0); EOSINOPHILS % 1.2 % (0.0-5.0); HEMATOCRIT. 24.4 % (42.0-52.0); HEMOGLOBIN. 8.2 g/dL (14.0-18.0); LYMPHOCYTES % 13.5 % (20.0-50.0); MEAN PLATELET VOLUME 7.9 fl (7.4-10.4); MONOCYTES % 6.1 % (2.0-8.0); NEUTROPHILS % 79.0 % (40.0-76.0); PLATELET 65 x1000/uL (130-400); RED BLOOD CELL COUNT 2.75 mill/uL (4.7-6.1); RED CELL DISTRIBUTION WIDTH 16.0 % (11.6-14.6)
[2025-06-09 07:10] LABS: CREATININE 2.3 mg/dL (0.6-1.3); INR 2.0
[2025-06-09 07:11] LABS: UREA NITROGEN BLOOD 37 mg/dL (9-23)
[2025-06-09 07:13] LABS: PHOSPHORUS 3.8 mg/dL (2.5-4.9)
[2025-06-09] MEDS: MAGNESIUM 2 G PREMIX 50 ML IV ONE (09:05)
[2025-06-09] MEDS ORDERED: IOHEXOL-350 100 ML BOTTLE ONE (12:43)
[2025-06-09] MEDS ORDERED: LIDOCAINE HCL 1% 10 MG/ML 10ML VIAL ONE (12:43)
[2025-06-09] MEDS ORDERED: VANCOMYCIN 750MG/150ML (BAXTER) IV SCH (21:00)
[2025-06-09] MEDS: CEFEPIME 1GM/50ML 50 ML IV SCH (23:14)
[2025-06-10] VITALS (87 sets, daily range): BP systolic 69–114; BP diastolic 56–94; PULSE 59–111; RESP 11–25; TEMP 35.7–36.9; O2SAT 91–100
[2025-06-10 05:36] LABS: PLATELET 83 x1000/uL (130-400); RED BLOOD CELL COUNT 2.93 mill/uL (4.7-6.1); RED CELL DISTRIBUTION WIDTH 16.7 % (11.6-14.6)
[2025-06-10 05:46] LABS: CREATININE 2.0 mg/dL (0.6-1.3); UREA NITROGEN BLOOD 31.0 mg/dL (9-23)
[2025-06-10] MEDS: DEXTROSE 5% WATER 1,000 ML IV SCH (08:53)
[2025-06-10] MEDS: IPRATROPIUM/ALBUTEROL 0.5-3(2.5)MG/3ML NEB HHN PRN (16:05)
[2025-06-11] VITALS (96 sets, daily range): BP systolic 67–111; BP diastolic 42–94; PULSE 66–105; RESP 10–21; TEMP 34.7–36.8; O2SAT 95–100
[2025-06-11 05:36] LABS: CREATININE 2.0 mg/dL (0.6-1.3); UREA NITROGEN BLOOD 23 mg/dL (9-23)
[2025-06-11 05:38] LABS: PHOSPHORUS 3.5 mg/dL (2.5-4.9)
[2025-06-11] MEDS: MAGNESIUM 2 G PREMIX 50 ML IV NR (06:51)
[2025-06-11] MEDS: SODIUM BICARBONATE 8.4% 50MEQ/50ML SYR IV NR (06:51)
[2025-06-11] MEDS ORDERED: ALBUTEROL (0.083%) 2.5MG/3ML NEB HHN NR (07:00)
[2025-06-11] MEDS: SODIUM ZIRCONIUM CYCLOSILICATE 10GM/PACKET PO NR (08:01)
[2025-06-11] MEDS: SODIUM BICARBONATE 100 MEQ in DEXTROSE 5% WATER 900 ML IV SCH (08:52)
[2025-06-11 10:09] LABS: BASOPHILS % 0.5 % (0.0-2.0); EOSINOPHILS % 1.3 % (0.0-5.0); HEMATOCRIT. 22.4 % (42.0-52.0); HEMOGLOBIN. 7.1 g/dL (14.0-18.0); LYMPHOCYTES % 18.7 % (20.0-50.0); MEAN PLATELET VOLUME 9.1 fl (7.4-10.4); MONOCYTES % 7.4 % (2.0-8.0); NEUTROPHILS % 72.1 % (40.0-76.0); PLATELET 90 x1000/uL (130-400); RED BLOOD CELL COUNT 2.46 mill/uL (4.7-6.1); RED CELL DISTRIBUTION WIDTH 16.4 % (11.6-14.6)
[2025-06-11 10:22] LABS: INR 2.0
[2025-06-11] MEDS: ALBUTEROL (0.083%) 2.5MG/3ML NEB HHN NR (10:35)
[2025-06-11] MEDS: CEFEPIME 2GM/100ML 100 ML IV SCH (18:35)
[2025-06-12] VITALS (67 sets, daily range): BP systolic 80–110; BP diastolic 64–87; PULSE 63–91; RESP 6–18; TEMP 36.00288–36.6; O2SAT 96–100
[2025-06-12 05:34] LABS: BASOPHILS % 0.2 % (0.0-2.0); EOSINOPHILS % 0.9 % (0.0-5.0); LYMPHOCYTES % 16.1 % (20.0-50.0); MEAN PLATELET VOLUME 8.2 fl (7.4-10.4); MONOCYTES % 7.0 % (2.0-8.0); NEUTROPHILS % 75.8 % (40.0-76.0); PLATELET 88 x1000/uL (130-400); RED BLOOD CELL COUNT 2.34 mill/uL (4.7-6.1); RED CELL DISTRIBUTION WIDTH 15.9 % (11.6-14.6)
[2025-06-12 05:41] LABS: CREATININE 1.8 mg/dL (0.6-1.3)
[2025-06-12 05:42] LABS: UREA NITROGEN BLOOD 30.0 mg/dL (9-23)
[2025-06-12 06:40] LABS: HEMATOCRIT. 20.7 % (42.0-52.0); HEMOGLOBIN. 6.8 g/dL (14.0-18.0)
[2025-06-12] MEDS: POTASSIUM CHLORIDE 20MEQ/PACKET PO SCH (08:37)
[2025-06-12 14:45] LABS: FOLIC ACID (FOLATE) SERUM 3.45 ng/mL (>5.38); VITAMIN B12 SERUM 1304 pg/mL (211-911)
[2025-06-12 15:35] LABS: PLATELET 82 x1000/uL (130-400); RED BLOOD CELL COUNT 3.05 mill/uL (4.7-6.1); RED CELL DISTRIBUTION WIDTH 16.6 % (11.6-14.6)
[2025-06-13] VITALS (50 sets, daily range): BP systolic 62–112; BP diastolic 47–87; PULSE 68–110; RESP 2–21; TEMP 36.3–36.7; O2SAT 93–100
[2025-06-13 05:23] LABS: PLATELET 109 x1000/uL (130-400); RED BLOOD CELL COUNT 3.07 mill/uL (4.7-6.1); RED CELL DISTRIBUTION WIDTH 16.7 % (11.6-14.6)
[2025-06-13 05:52] LABS: CREATININE 1.5 mg/dL (0.6-1.3)
[2025-06-13 05:53] LABS: UREA NITROGEN BLOOD 22.0 mg/dL (9-23)
[2025-06-13 05:55] LABS: PHOSPHORUS 2.7 mg/dL (2.5-4.9)
[2025-06-13] MEDS ORDERED: IPRATROPIUM/ALBUTEROL 0.5-3(2.5)MG/3ML NEB HHN PRN (12:15)
[2025-06-13] MEDS: SODIUM CHLORIDE 0.9% 1,000 ML IV SCH (20:31)
[2025-06-14] VITALS (76 sets, daily range): BP systolic 81–115; BP diastolic 65–95; PULSE 50–95; RESP 7–20; TEMP 36.3–36.7; O2SAT 95–100
[2025-06-14 05:14] LABS: HEMATOCRIT. 26.2 % (42.0-52.0); HEMOGLOBIN. 8.6 g/dL (14.0-18.0); MEAN PLATELET VOLUME 9.1 fl (7.4-10.4); PLATELET 158 x1000/uL (130-400); RED BLOOD CELL COUNT 3.04 mill/uL (4.7-6.1); RED CELL DISTRIBUTION WIDTH 16.8 % (11.6-14.6)
[2025-06-14 05:18] LABS: CREATININE 1.4 mg/dL (0.6-1.3); UREA NITROGEN BLOOD 25 mg/dL (9-23)
[2025-06-14 07:10] LABS: BAND% 2.0 % (1.0-6.0); EOSINOPHILS % MANUAL 1.0 % (0.0-5.0); LYMPHOCYTES % MANUAL 18.0 % (20.0-50.0); MONOCYTES % MANUAL 11.0 % (2.0-8.0); NEUTROPHILS % MANUAL 68.0 % (45.0-75.0); PLATELET ESTIMATE NORMAL
[2025-06-14] MEDS: PNEUMOCOCCAL 20-VAL CONJ-DIP CRM 0.5ML IM ONE (09:00)
[2025-06-14] MEDS: KCL 20MEQ/100ML PREMIX 100 ML IV SCH (09:05)
[2025-06-14] MEDS: MIDODRINE HCL 5MG TABLET PO SCH (09:06)
[2025-06-14] MEDS: DEXTROSE 50% WATER 50ML SYRINGE IV PRN (12:17)
[2025-06-15] VITALS (69 sets, daily range): BP systolic 76–116; BP diastolic 60–90; PULSE 53–93; RESP 5–14; TEMP 37.1–37.2; O2SAT 96–100
[2025-06-15] MEDS: ACETAMINOPHEN 325MG TABLET PO NR (04:01)
[2025-06-15 06:54] LABS: HEMATOCRIT. 24.4 % (42.0-52.0); HEMOGLOBIN. 8.1 g/dL (14.0-18.0); MEAN PLATELET VOLUME 9.6 fl (7.4-10.4); PLATELET 160 x1000/uL (130-400); RED BLOOD CELL COUNT 2.82 mill/uL (4.7-6.1); RED CELL DISTRIBUTION WIDTH 16.5 % (11.6-14.6)
[2025-06-15 07:07] LABS: CREATININE 1.3 mg/dL (0.6-1.3); UREA NITROGEN BLOOD 25 mg/dL (9-23)
[2025-06-15] MEDS: POTASSIUM CHLORIDE 20MEQ/PACKET PO SCH (08:50)
[2025-06-15 10:20] LABS: BAND% 4.0 % (1.0-6.0); EOSINOPHILS % MANUAL 4.0 % (0.0-5.0); LYMPHOCYTES % MANUAL 18.0 % (20.0-50.0); MONOCYTES % MANUAL 6.0 % (2.0-8.0); NEUTROPHILS % MANUAL 68.0 % (45.0-75.0); PLATELET ESTIMATE NORMAL
[2025-06-15] MEDS: MORPHINE SULFATE 4 MG/ML INJ (FOR IV/IM USE) IV SCH (17:21)
[2025-06-16] VITALS: BP 93/68; PULSE 66; RESP 20; TEMP 35.9; O2SAT 96
[2025-06-16 04:00] VITALS: BP_SYST 104; BP_DIAS 60; BP_DIAS 73; PULSE 74; RESP 20; TEMP 36.2; O2SAT 94
[2025-06-16 08:00] VITALS: BP 109/73; PULSE 69; RESP 18; TEMP 35.9; O2SAT 100
[2025-06-16] MEDS: MULTIVITAMINS,THER W-MINERALS TABLET PO SCH (08:43)
[2025-06-16 12:00] VITALS: BP 100/66; PULSE 73; RESP 18; TEMP 36.5; O2SAT 100
[2025-06-16 16:00] VITALS: BP 97/74; PULSE 76; RESP 18; TEMP 36.4; O2SAT 100
[2025-06-16 21:24] LABS: PLATELET 190 x1000/uL (130-400); RED BLOOD CELL COUNT 2.93 mill/uL (4.7-6.1); RED CELL DISTRIBUTION WIDTH 16.4 % (11.6-14.6)
[2025-06-16 21:43] LABS: CREATININE 1.2 mg/dL (0.6-1.3); UREA NITROGEN BLOOD 25 mg/dL (9-23)
[2025-06-17] VITALS: BP 118/65; PULSE 72; RESP 18; TEMP 36; O2SAT 100
[2025-06-17 04:00] VITALS: BP 109/71; PULSE 61; RESP 17; TEMP 36.5; O2SAT 99
[2025-06-17 08:00] VITALS: BP 105/73; PULSE 80; RESP 18; TEMP 35.8; O2SAT 97
[2025-06-17 08:01] LABS: PLATELET 203 x1000/uL (130-400); RED BLOOD CELL COUNT 3.09 mill/uL (4.7-6.1); RED CELL DISTRIBUTION WIDTH 16.3 % (11.6-14.6)
[2025-06-17 08:15] LABS: CREATININE 1.2 mg/dL (0.6-1.3); UREA NITROGEN BLOOD 24 mg/dL (9-23)
[2025-06-17] MEDS ORDERED: APIX5TAB MT (11:18)
[2025-06-17] MEDS ORDERED: LEVE1000 MT (11:18)
[2025-06-17] MEDS ORDERED: MIDO5TAB4 PO (11:18)
[2025-06-17 12:00] VITALS: BP 112/80; PULSE 65; RESP 18; TEMP 36.4; O2SAT 100
[2025-06-17 16:10] VITALS: BP 100/70; PULSE 80; RESP 18; TEMP 36; O2SAT 100
[2025-06-17 20:00] VITALS: BP 102/64; PULSE 74; RESP 18; TEMP 36.7; O2SAT 99
[2025-06-18] VITALS: BP 115/67; PULSE 99; RESP 17; TEMP 36.4; O2SAT 99
[2025-06-18 04:00] VITALS: BP 107/59; PULSE 92; RESP 18; TEMP 36.7; O2SAT 99
[2025-06-18 07:20] LABS: BASOPHILS % 0.8 % (0.0-2.0); EOSINOPHILS % 0.9 % (0.0-5.0); HEMATOCRIT. 27.8 % (42.0-52.0); HEMOGLOBIN. 9.0 g/dL (14.0-18.0); LYMPHOCYTES % 25.7 % (20.0-50.0); MEAN PLATELET VOLUME 8.8 fl (7.4-10.4); MONOCYTES % 10.2 % (2.0-8.0); NEUTROPHILS % 62.4 % (40.0-76.0); PLATELET 216 x1000/uL (130-400); RED BLOOD CELL COUNT 3.15 mill/uL (4.7-6.1); RED CELL DISTRIBUTION WIDTH 16.7 % (11.6-14.6)
[2025-06-18 07:23] LABS: CREATININE 1.1 mg/dL (0.6-1.3); UREA NITROGEN BLOOD 20 mg/dL (9-23)
[2025-06-18 08:00] VITALS: BP 110/60; PULSE 63; RESP 18; TEMP 36.4; O2SAT 99
[2025-06-18 12:10] VITALS: BP 110/64; PULSE 78; RESP 20; TEMP 36.2; O2SAT 99
[2025-06-18 16:00] VITALS: BP 113/76; PULSE 73; RESP 18; TEMP 36.1; O2SAT 95
[2025-06-18 20:00] VITALS: BP 106/71; PULSE 72; RESP 18; TEMP 36.8; O2SAT 98
[2025-06-19] VITALS: BP 100/66; PULSE 80; RESP 18; TEMP 36.7; O2SAT 96
[2025-06-19 08:00] VITALS: BP 104/70; PULSE 72; RESP 18; TEMP 36; O2SAT 95
[2025-06-19 10:19] LABS: BASOPHILS % 0.8 % (0.0-2.0); EOSINOPHILS % 1.7 % (0.0-5.0); HEMATOCRIT. 23.1 % (42.0-52.0); LYMPHOCYTES % 28.0 % (20.0-50.0); MEAN PLATELET VOLUME 9.1 fl (7.4-10.4); MONOCYTES % 10.7 % (2.0-8.0); NEUTROPHILS % 58.8 % (40.0-76.0); PLATELET 201 x1000/uL (130-400); RED BLOOD CELL COUNT 2.65 mill/uL (4.7-6.1); RED CELL DISTRIBUTION WIDTH 16.5 % (11.6-14.6)
[2025-06-19 10:25] LABS: CREATININE 1.0 mg/dL (0.6-1.3); UREA NITROGEN BLOOD 22 mg/dL (9-23)
[2025-06-19 10:38] LABS: HEMOGLOBIN. 7.6 g/dL (14.0-18.0)
[2025-06-19 12:00] VITALS: BP 112/78; PULSE 67; RESP 18; TEMP 36; O2SAT 95
[2025-06-19 16:00] VITALS: BP 119/82; PULSE 66; RESP 18; TEMP 36.1; O2SAT 99
[2025-06-19] MEDS: POTASSIUM CHLORIDE 20MEQ/PACKET PO SCH (16:37)
[2025-06-19 20:00] VITALS: BP 119/74; PULSE 64; RESP 20; TEMP 36.7; O2SAT 97
[2025-06-20] VITALS: BP 122/80; PULSE 92; RESP 18; TEMP 36.9; O2SAT 97
[2025-06-20 04:00] VITALS: BP 110/80; PULSE 79; RESP 20; TEMP 36.9; O2SAT 98
[2025-06-20 08:00] VITALS: BP 112/68; PULSE 70; RESP 18; TEMP 35.7; O2SAT 95
[2025-06-20 12:00] VITALS: BP 118/76; PULSE 72; RESP 18; TEMP 36.4; O2SAT 96
[2025-06-20 16:00] VITALS: BP 126/88; PULSE 70; RESP 18; TEMP 36.1; O2SAT 100
[2025-06-20] MEDS ORDERED: ACETAMINOPHEN 650MG/20.3ML UDC PO PRN (19:45)
[2025-06-20 20:00] VITALS: BP 118/80; PULSE 70; RESP 18; TEMP 36.3; O2SAT 98
[2025-06-20] MEDS: ENOXAPARIN 80MG/0.8ML SYR SUBCUT SCH (20:26)
[2025-06-20] MEDS: ACETAMINOPHEN 650MG/20.3ML UDC PO PRN (20:36)
[2025-06-21] VITALS: BP 122/86; PULSE 71; RESP 18; TEMP 36.4; O2SAT 99
[2025-06-21 04:00] VITALS: BP 99/56; PULSE 93; RESP 18; TEMP 36.6; O2SAT 98
[2025-06-21 08:00] VITALS: BP 107/78; PULSE 87; RESP 18; TEMP 35.9; O2SAT 97
[2025-06-21 11:10] LABS: BASOPHILS % 1.2 % (0.0-2.0); EOSINOPHILS % 1.0 % (0.0-5.0); HEMATOCRIT. 25.2 % (42.0-52.0); HEMOGLOBIN. 8.0 g/dL (14.0-18.0); LYMPHOCYTES % 17.1 % (20.0-50.0); MEAN PLATELET VOLUME 9.0 fl (7.4-10.4); MONOCYTES % 7.8 % (2.0-8.0); NEUTROPHILS % 72.9 % (40.0-76.0); PLATELET 165 x1000/uL (130-400); RED BLOOD CELL COUNT 2.82 mill/uL (4.7-6.1); RED CELL DISTRIBUTION WIDTH 17.2 % (11.6-14.6)
[2025-06-21 12:00] VITALS: BP 107/75; PULSE 76; RESP 19; TEMP 36.1; O2SAT 97
[2025-06-21 16:00] VITALS: BP 120/81; PULSE 69; RESP 18; TEMP 36.1; O2SAT 96
[2025-06-21 20:00] VITALS: BP 110/80; PULSE 66; RESP 18; TEMP 36.2; O2SAT 98
[2025-06-22] VITALS: BP 121/86; PULSE 73; RESP 18; TEMP 36.3; O2SAT 100
[2025-06-22] MEDS ORDERED: LACTATED RINGERS 250 ML IV SCH (05:00)
[2025-06-22] MEDS: LOPERAMIDE 2MG/15ML UDC PO NR (05:05)
[2025-06-22 08:00] VITALS: BP 114/81; PULSE 69; RESP 18; TEMP 36.4; O2SAT 97
[2025-06-22 12:00] VITALS: BP_SYST 118; BP_SYST 122; BP_DIAS 83; BP_DIAS 89; PULSE 68; RESP 18; RESP 19; TEMP 36.4; TEMP 36.6; O2SAT 100; O2SAT 98
[2025-06-22 20:00] VITALS: BP 110/75; PULSE 68; RESP 18; TEMP 36.6; O2SAT 96
[2025-06-23] VITALS: BP 123/90; PULSE 66; RESP 18; TEMP 36.6; O2SAT 98
[2025-06-23 04:00] VITALS: BP 137/93; PULSE 69; RESP 18; TEMP 36.5; O2SAT 98
[2025-06-23 08:00] VITALS: BP 125/59; PULSE 74; RESP 18; TEMP 36.1; O2SAT 95
[2025-06-23 12:00] VITALS: BP 113/80; PULSE 69; RESP 17; TEMP 36.4; O2SAT 95
[2025-06-23 16:00] VITALS: BP 108/71; PULSE 70; RESP 18; TEMP 36.3; O2SAT 95
[2025-06-23 16:20] VITALS: BP 113/80; PULSE 69; RESP 17; TEMP 97.5
[2025-06-23] MEDS ORDERED: LEVETIRACETAM 500MG TABLET PO SCH (21:00)
== END 2025-06-23 17:29 | DRG 871 ==
LOC: ER 06:28 → MICUSO 08:00 → EDBEDREQTM 08:12 → EDBEDREQ 08:12 → EDBEDREQSVC 08:12 → ENRESERV 08:36 → 8WST 06-15 23:25 → 6EST 06-20 14:50
PROVIDERS: ADMIT Internal Medicine; ATTEND Internal Medicine
PROC: 05HY33Z Insertion of Infusion Device into Upper Vein, Percutaneous Approach (ICD-10-PCS; 2025-06-05)
PROC: B54MZZA Ultrasonography of Right Upper Extremity Veins, Guidance (ICD-10-PCS; 2025-06-05)
PROC: 30233N1 Transfusion of Nonautologous Red Blood Cells into Peripheral Vein, Percutaneous Approach (ICD-10-PCS; principal; 2025-06-06)
PROC: 06H03DZ Insertion of Intraluminal Device into Inferior Vena Cava, Percutaneous Approach (ICD-10-PCS; 2025-06-09)
DX: A41.9 Sepsis, unspecified organism (principal); G93.41 Metabolic encephalopathy; L89.153 Pressure ulcer of sacral region, stage 3; J96.01 Acute respiratory failure with hypoxia; R65.21 Severe sepsis with septic shock; J69.0 Pneumonitis due to inhalation of food and vomit; I26.99 Other pulmonary embolism without acute cor pulmonale; E87.20 Acidosis, unspecified; E72.20 Disorder of urea cycle metabolism, unspecified; I67.82 Cerebral ischemia; I82.402 Acute embolism and thrombosis of unspecified deep veins of left lower extremity; E87.0 Hyperosmolality and hypernatremia; N17.9 Acute kidney failure, unspecified; N39.0 Urinary tract infection, site not specified; R18.8 Other ascites; D68.9 Coagulation defect, unspecified; N13.8 Other obstructive and reflux uropathy; I82.412 Acute embolism and thrombosis of left femoral vein; N13.9 Obstructive and reflux uropathy, unspecified; G40.909 Epilepsy, unspecified, not intractable, without status epilepticus; F29 Unspecified psychosis not due to a substance or known physiological condition; E83.39 Other disorders of phosphorus metabolism; E83.42 Hypomagnesemia; L98.429 Non-pressure chronic ulcer of back with unspecified severity; I12.9 Hypertensive chronic kidney disease with stage 1 through stage 4 chronic kidney disease, or unspecified chronic kidney disease; N18.9 Chronic kidney disease, unspecified; D53.9 Nutritional anemia, unspecified; K22.89 Other specified disease of esophagus; E11.22 Type 2 diabetes mellitus with diabetic chronic kidney disease; E87.6 Hypokalemia; D50.9 Iron deficiency anemia, unspecified; F03.90 Unspecified dementia, unspecified severity, without behavioral disturbance, psychotic disturbance, mood disturbance, and anxiety; N40.1 Benign prostatic hyperplasia with lower urinary tract symptoms; K21.9 Gastro-esophageal reflux disease without esophagitis; I25.10 Atherosclerotic heart disease of native coronary artery without angina pectoris; I48.91 Unspecified atrial fibrillation; K76.0 Fatty (change of) liver, not elsewhere classified; Z95.828 Presence of other vascular implants and grafts; I25.2 Old myocardial infarction
CPT/HCPCS: 36415; 36573; 36600; 37191; 71045; 71275; 74176; 74177; 76604; 78580; 80048; 80076; 80202; 80305; 81003; 82140; 82270; 82375; 82533; 82550; 82553; 82607; 82746; 82805; 82962; 83036; 83540; 83550; 83605; 83735; 83880; 83930; 83935; 84100; 84132; 84145; 84443; 84484; 85014; 85018; 85025; 85027; 85044; 85379; 86705; 86850; 86900; 86920; 87015; 87045; 87340; 87427; 87449; 90732; 92610; 93005; 93306; 93970; 93971; 94640; 94664; 96365; 96368; 97162; 97166; 99291; A4606; A6449; C1725; C1769; C1880; J0692; J1650; J1953; J2003; J2185; J2270; J2470; J3373; J3475; J3480; J3490; J7030; J7060; J7070; P9016; Q9967

== ENCOUNTER 2025-07-17 17:12 | Inpatient (IN) | payer MEDICARE, OTHER ==
[~2025-07-17] VITALS: Ht 172.7 cm; Wt 86.2 kg
[~2025-07-17 17:12] MED LIST: APIX5TAB MT; LEVE1000 MT; MIDO5TAB4 PO
[2025-07-17] MEDS: PIPERACILLIN/TAZO 3.375G/50ML 50 ML IV ONE (17:30)
[2025-07-17] MEDS ORDERED: VANCOMYCIN 1G PREMIX 200 ML IV ONE (17:30)
[2025-07-17] MEDS: DEXTROSE 50% WATER 50ML SYRINGE IV ONE (17:33)
[2025-07-17] MEDS: SODIUM CHLORIDE 0.9% 1,000 ML IV ONE (17:34)
[2025-07-17] MEDS ORDERED: NOREPINEPHRINE 8 MG in DEXT 5% WATER 242 ML IV STA (17:58)
[2025-07-17 18:03] LABS: BG BASE EXCESS -22.5 mmol/L (-2.0-3.0); BG CARBOXYHEMOGLOBIN 1.2 % (0.5-1.5); BG DEOXYHEMOGLOBIN 5.5 % (0.0-5.0); BG FRACTION INSPIRED OXYGEN 21; BG HCO3 ACT 4.8 mmol/L (21.0-28.0); BG METHEMOGLOBIN 1.2 % (0.5-1.5); BG OXYGEN SATURATION 94.4 % (94.0-98.0); BG OXYHEMOGLOBIN 92.1 % (94.0-98.0); BG PCO2 15.2 mmHg (35.0-48.0); BG PH 7.118 (7.350-7.450); BG PO2 94.3 mmHg (83.0-108.0); BG SAMPLE SITE LEFT RADIAL; BG TOTAL HEMOGLOBIN 4.2 g/dL (13.5-17.5); BG VENT MODE ROOM AIR
[2025-07-17 18:15] LABS: BASOPHILS % 0.3 % (0.0-2.0); EOSINOPHILS % 0.1 % (0.0-5.0); LYMPHOCYTES % 13.0 % (20.0-50.0); MEAN PLATELET VOLUME 8.2 fl (7.4-10.4); MONOCYTES % 3.2 % (2.0-8.0); NEUTROPHILS % 83.4 % (40.0-76.0); PLATELET 51 x1000/uL (130-400); RED BLOOD CELL COUNT 1.43 mill/uL (4.7-6.1); RED CELL DISTRIBUTION WIDTH 19.6 % (11.6-14.6)
[2025-07-17 18:29] LABS: TROPONIN I HIGH SENSITIVITY 16 ng/L (3.0-53)
[2025-07-17 18:30] LABS: UREA NITROGEN BLOOD 40 mg/dL (9-23)
[2025-07-17 18:31] LABS: ASPARTATE AMINOTRANSFERASE 12 IU/L (<34); BILIRUBIN DIRECT < 0.1 mg/dL (<=3.0)
[2025-07-17 18:32] LABS: BILIRUBIN TOTAL < 0.2 mg/dL (0.1-1.0); PROTEIN TOTAL 3.2 g/dL (6.0-8.3)
[2025-07-17 18:33] LABS: T4 FREE 0.49 ng/dL (0.89-1.76)
[2025-07-17 18:53] LABS: HEMOGLOBIN. 4.0 g/dL (14.0-18.0)
[2025-07-17 18:54] LABS: HEMATOCRIT. 13.3 % (42.0-52.0)
[2025-07-17 19:20] LABS: CREATININE 1.8 mg/dL (0.6-1.3)
[2025-07-17] MEDS: PIPERACILLIN/TAZO 3.375G/50ML 50 ML IV SCH (19:41)
[2025-07-17] MEDS: SODIUM BICARBONATE 8.4% 50MEQ/50ML SYR IV ONE (19:41)
[2025-07-17] MEDS: NOREPINEPHRINE 8MG/250ML PMX 250 ML IV STA (20:22)
[2025-07-17] MEDS: NOREPINEPHRINE 32 MG in DEXT 5% WATER 218 ML IV PRN (21:30)
[2025-07-17] MEDS: VANCOMYCIN 1G PREMIX 200 ML IV SCH (21:33)
[2025-07-17] MEDS ORDERED: ACETAMINOPHEN 650MG SUPP PR PRN ×2 (21:45)
[2025-07-17] MEDS ORDERED: CEFEPIME 2GM IN DEXT 5% 100ML IV SCH (21:45)
[2025-07-17] MEDS ORDERED: ONDANSETRON HCL 4MG/2ML INJ IV PRN (21:45)
[2025-07-17] MEDS ORDERED: GLUCAGON,HUMAN RECOMBINANT 1MG/VIAL IM PRN (22:30)
[2025-07-17] MEDS: BLOOD SUGAR DIAGNOSTIC STRIP TEST SCH (23:12)
[2025-07-17 23:17] LABS: INR 2.5
[2025-07-17 23:21] LABS: ETHANOL BLOOD < 10 mg/dL (<10)
[2025-07-17 23:23] LABS: CREATINE KINASE MB FRACTION 6.7 ng/mL (0.5-3.6); TROPONIN I HIGH SENSITIVITY 26.0 ng/L (3.0-53)
[2025-07-17 23:24] LABS: PHOSPHORUS 5.0 mg/dL (2.5-4.9)
[2025-07-17] MEDS: MAGNESIUM 4 G PREMIX 100 ML IV NR (23:37)
[2025-07-17 23:43] LABS: FOLIC ACID (FOLATE) SERUM 4.5 ng/mL (>5.38)
[2025-07-17 23:49] LABS: OSMOLALITY 330 mOsm/kg (280-295)
[2025-07-18] VITALS (75 sets, daily range): BP systolic 65–141; BP diastolic 49–104; PULSE 75–104; RESP 16–30; TEMP 33.5824–37.00296; O2SAT 92–100
[2025-07-18] MEDS: FAMOTIDINE 20MG/2ML VIAL IV SCH (00:08)
[2025-07-18] MEDS: CEFEPIME 2GM PREMIX 100ML IV SCH (00:46)
[2025-07-18] MEDS ORDERED: FOLIC ACID 1 MG in SODIUM CHLORIDE 0.9% 500 ML IV SCH (01:00)
[2025-07-18 02:41] LABS: CREATININE 1.7 mg/dL (0.6-1.3); TROPONIN I HIGH SENSITIVITY 35 ng/L (3.0-53); UREA NITROGEN BLOOD 38 mg/dL (9-23)
[2025-07-18 02:43] LABS: ASPARTATE AMINOTRANSFERASE 16 IU/L (<34); BILIRUBIN TOTAL 0.2 mg/dL (0.1-1.0); PROTEIN TOTAL 4.0 g/dL (6.0-8.3)
[2025-07-18] MEDS: ALBUMIN HUMAN 12.5GM/50ML (25%) IV SCH (02:48)
[2025-07-18] MEDS: LEVETIRACETAM 1000MG PREMIX 100 ML IV SCH (03:49)
[2025-07-18 05:46] LABS: PLATELET 81 x1000/uL (130-400); RED BLOOD CELL COUNT 2.84 mill/uL (4.7-6.1); RED CELL DISTRIBUTION WIDTH 18.6 % (11.6-14.6)
[2025-07-18 05:59] LABS: CREATINE KINASE MB FRACTION 5.7 ng/mL (0.5-3.6)
[2025-07-18 06:00] LABS: TROPONIN I HIGH SENSITIVITY 43.0 ng/L (3.0-53)
[2025-07-18 06:01] LABS: CREATININE 1.8 mg/dL (0.6-1.3)
[2025-07-18 06:02] LABS: UREA NITROGEN BLOOD 40 mg/dL (9-23)
[2025-07-18 06:04] LABS: PHOSPHORUS 4.9 mg/dL (2.5-4.9)
[2025-07-18] MEDS: PANTOPRAZOLE SODIUM 40 MG/VIAL IV SCH (06:13)
[2025-07-18] MEDS: LEVOTHYROXINE SODIUM 100 MCG/ VIAL IV SCH (07:10)
[2025-07-18] MEDS: FOLIC ACID 5 MG/ML IV SCH (07:10)
[2025-07-18 07:15] LABS: INFLUENZA TYPE A Presumptive Negative (Pres. Neg.)
[2025-07-18 07:16] LABS: INFLUENZA TYPE B Presumptive Negative (Pres. Neg.); RESPIRATORY SYNCYTIAL VIRUS Not Detected (Not Detectd)
[2025-07-18] MEDS: LEVOTHYROXINE SODIUM 75MCG TABLET NG SCH (07:44)
[2025-07-18 07:59] LABS: CLARITY URINE TURBID (CLEAR); COLOR URINE YELLOW (YELLOW); GLUCOSE URINE NEGATIVE (NEGATIVE); KETONES URINE NEGATIVE (NEGATIVE); LEUKOCYTE ESTERASE URINE 3+ (NEGATIVE); NITRITE URINE NEGATIVE (NEGATIVE); OCCULT BLOOD URINE 3+ (NEGATIVE); PH URINE 5.5 (4.5-8.0); PROTEIN URINE 1+ (NEGATIVE); SPECIFIC GRAVITY URINE 1.013 (1.005-1.030); UROBILINOGEN URINE 0.2 E.U./dL (0.2-1.0)
[2025-07-18] MEDS: METRONIDAZOLE 500 MG PREMIX 100 ML IV SCH (08:39)
[2025-07-18] MEDS: SODIUM BICARBONATE 8.4% 50MEQ/50ML SYR IV SCH (08:40)
[2025-07-18 08:56] LABS: *AMPHETAMINES SCREEN URINE NEGATIVE (NEGATIVE); *BARBITURATES SCREEN URINE NEGATIVE (NEGATIVE); *BENZODIAZEPINES SCREEN URINE NEGATIVE (NEGATIVE)
[2025-07-18 08:57] LABS: *COCAINE SCREEN URINE NEGATIVE (NEGATIVE); CANNABINOID URINE SCREEN NEGATIVE (NEGATIVE); ECSTASY MDMA SCREEN URINE NEGATIVE (NEGATIVE); METHADONE URINE SCREEN NEGATIVE (NEGATIVE); OPIATES URINE SCREEN NEGATIVE (NEGATIVE); PHENCYCLIDINE URINE SCREEN NEGATIVE (NEGATIVE)
[2025-07-18] MEDS: FOLIC ACID 1MG TABLET NG SCH (09:00)
[2025-07-18 09:16] LABS: BACTERIA URINE 2+; RBC URINE NONE SEEN /hpf (0-2); SQUAMOUS EPITHELIAL CELL URINE NONE SEEN /lpf (RARE/1+); WBC URINE TNTC /hpf (0-2); YEAST URINE NONE SEEN
[2025-07-18 10:34] LABS: BG BASE EXCESS -16.4 mmol/L (-2.0-3.0); BG CARBOXYHEMOGLOBIN 0.8 % (0.5-1.5); BG DEOXYHEMOGLOBIN 6.0 % (0.0-5.0); BG FLOW(L/min) 1.00 L/min; BG FRACTION INSPIRED OXYGEN 24; BG HCO3 ACT 9.4 mmol/L (21.0-28.0); BG METHEMOGLOBIN 0.3 % (0.5-1.5); BG OXYGEN SATURATION 93.9 % (94.0-98.0); BG OXYHEMOGLOBIN 92.9 % (94.0-98.0); BG PCO2 22.3 mmHg (35.0-48.0); BG PH 7.241 (7.350-7.450); BG PO2 72.5 mmHg (83.0-108.0); BG SAMPLE SITE LEFT RADIAL; BG TOTAL HEMOGLOBIN 7.5 g/dL (13.5-17.5); BG VENT MODE NASAL CANNULA
[2025-07-18] MEDS: IPRATROPIUM/ALBUTEROL 0.5-3(2.5)MG/3ML NEB HHN PRN (10:42)
[2025-07-18] MEDS: SODIUM BICARBONATE 100 MEQ in SODIUM CHLORIDE 0.45% 900 ML IV SCH (10:53)
[2025-07-18] MEDS ORDERED: SODIUM BICARBONATE 100 MEQ in SODIUM CHLORIDE 0.45% 900 ML IV SCH (11:00)
[2025-07-18] MEDS: GUAIFENESIN 200MG/10ML SUGAR FREE UDC PO SCH (12:00)
[2025-07-18] MEDS: IPRATROPIUM/ALBUTEROL 0.5-3(2.5)MG/3ML NEB HHN SCH (14:01)
[2025-07-18] MEDS: PHENYLEPHRINE 100 MG in DEXT 5% WATER 240 ML IV PRN (14:21)
[2025-07-18] MEDS: NOREPINEPHRINE 32 MG in DEXT 5% WATER 218 ML IV PRN (16:00)
[2025-07-18] MEDS: ALBUMIN HUMAN 25GM/100ML (25%) IV NR (16:44)
[2025-07-18] MEDS: PHYTONADIONE 10MG/ML INJ SUBCUT NR (16:46)
[2025-07-18] MEDS: DEXTROSE 50% WATER 50ML SYRINGE IV PRN (17:23)
[2025-07-18] MEDS: VANCOMYCIN 1GM/200ML PMX (BAXTER) IV SCH (18:30)
[2025-07-18 22:07] LABS: CREATININE 1.9 mg/dL (0.6-1.3); UREA NITROGEN BLOOD 33.0 mg/dL (9-23)
[2025-07-18 22:45] LABS: HEPATITIS A AB IGM NEGATIVE (Negative); HEPATITIS B CORE AB IGM NEGATIVE (Negative)
[2025-07-18 22:46] LABS: HEPATITIS C AB NON REACTIVE (Neg) (Negative)
[2025-07-18] MEDS: DEXTROSE 5% WATER 1,000 ML IV ONE (22:47)
[2025-07-18] MEDS: LACTULOSE 20G/30ML UDC NG SCH (23:09)
[2025-07-18] MEDS: LACTULOSE ENEMA 1,000ML BOTTLE PR NR (23:10)
[2025-07-19] VITALS (104 sets, daily range): BP systolic 74–119; BP diastolic 51–87; PULSE 65–99; RESP 11–26; TEMP 34.8–36.4; O2SAT 75–100
[2025-07-19] MEDS: LACTULOSE 20G/30ML UDC NG SCH ×2 (00:27→22:52)
[2025-07-19 05:11] LABS: PLATELET 87 x1000/uL (130-400); RED BLOOD CELL COUNT 3.01 mill/uL (4.7-6.1); RED CELL DISTRIBUTION WIDTH 17.4 % (11.6-14.6)
[2025-07-19 05:16] LABS: CREATININE 1.9 mg/dL (0.6-1.3); UREA NITROGEN BLOOD 40 mg/dL (9-23)
[2025-07-19 05:19] LABS: PHOSPHORUS 5.3 mg/dL (2.5-4.9)
[2025-07-19 05:23] LABS: INR 1.8
[2025-07-19] MEDS: MAGNESIUM 4 G PREMIX 100 ML IV SCH (08:48)
[2025-07-19] MEDS: DOXYCYCLINE 100MG/100ML 100 ML IV SCH (08:48)
[2025-07-19 10:27] LABS: BG BASE EXCESS -21.3 mmol/L (-2.0-3.0); BG CARBOXYHEMOGLOBIN 0.8 % (0.5-1.5); BG DEOXYHEMOGLOBIN 7.5 % (0.0-5.0); BG FLOW(L/min) 3.50 L/min; BG FRACTION INSPIRED OXYGEN 34; BG HCO3 ACT 8.9 mmol/L (21.0-28.0); BG METHEMOGLOBIN 0.2 % (0.5-1.5); BG OXYGEN SATURATION 92.4 % (94.0-98.0); BG OXYHEMOGLOBIN 91.5 % (94.0-98.0); BG PCO2 36.0 mmHg (35.0-48.0); BG PH 7.009 (7.350-7.450); BG PO2 69.3 mmHg (83.0-108.0); BG SAMPLE SITE LEFT RADIAL; BG TOTAL HEMOGLOBIN 11.8 g/dL (13.5-17.5); BG VENT MODE NASAL CANNULA
[2025-07-19] MEDS: HYDROCORTISONE SOD SUCCINATE 100 MG/2 ML VIAL IV SCH (15:34)
[2025-07-19] MEDS ORDERED: DEXTROSE 5% WATER 1,000 ML IV SCH (16:00)
[2025-07-19] MEDS: MEROPENEM 1G/100ML 100 ML IV SCH (16:14)
[2025-07-19] MEDS: SPIRONOLACTONE 50MG TABLET NG NR (19:21)
[2025-07-19] MEDS: PHYTONADIONE 10MG/ML INJ SUBCUT NR (19:22)
[2025-07-19] MEDS: FUROSEMIDE 40MG/4ML VIAL IVP SCH (19:22)
[2025-07-19 22:16] LABS: BG BASE EXCESS -26.7 mmol/L (-2.0-3.0); BG CARBOXYHEMOGLOBIN 2.1 % (0.5-1.5); BG DEOXYHEMOGLOBIN 9.0 % (0.0-5.0); BG FRACTION INSPIRED OXYGEN 100; BG HCO3 ACT 5.3 mmol/L (21.0-28.0); BG METHEMOGLOBIN 0.6 % (0.5-1.5); BG OXYGEN SATURATION 90.8 % (94.0-98.0); BG OXYHEMOGLOBIN 88.3 % (94.0-98.0); BG PCO2 33.9 mmHg (35.0-48.0); BG PEEP (cmH2O) 5.0 cmH2O; BG PH 6.815 (7.350-7.450); BG PO2 68.4 mmHg (83.0-108.0); BG SAMPLE SITE CL; BG TIDAL VOLUME(mL) 400.0 mL; BG TOTAL HEMOGLOBIN 6.4 g/dL (13.5-17.5); BG VENT MODE VENT - AC; BG VENT RATE 20.0 set
[2025-07-19] MEDS: SODIUM BICARBONATE 100 MEQ in DEXTROSE 5% WATER 900 ML IV SCH (22:34)
[2025-07-19] MEDS: BUMETANIDE 1MG/4ML VIAL IV NR (22:52)
[2025-07-19 23:00] LABS: BG BASE EXCESS -24.5 mmol/L (-2.0-3.0); BG CARBOXYHEMOGLOBIN 0.3 % (0.5-1.5); BG DEOXYHEMOGLOBIN 0.6 % (0.0-5.0); BG FRACTION INSPIRED OXYGEN 100; BG HCO3 ACT 9.5 mmol/L (21.0-28.0); BG METHEMOGLOBIN 0.2 % (0.5-1.5); BG OXYGEN SATURATION 99.4 % (94.0-98.0); BG OXYHEMOGLOBIN 98.9 % (94.0-98.0); BG PCO2 58.6 mmHg (35.0-48.0); BG PEEP (cmH2O) 5.0 cmH2O; BG PH 6.829 (7.350-7.450); BG PO2 258.4 mmHg (83.0-108.0); BG SAMPLE SITE RIGHT BRACHIAL; BG TIDAL VOLUME(mL) 400.0 mL; BG TOTAL HEMOGLOBIN 11.8 g/dL (13.5-17.5); BG VENT MODE VENT - AC; BG VENT RATE 20.0 set
[2025-07-20] VITALS (108 sets, daily range): BP systolic 76–124; BP diastolic 55–95; PULSE 73–106; RESP 15–33; TEMP 35.6–36.1; O2SAT 94–100
[2025-07-20] MEDS: CALCIUM GLUCONATE 1GM PREMIX 50 ML IV NR (01:04)
[2025-07-20] MEDS: SODIUM BICARBONATE 8.4% 50MEQ/50ML SYR IV NR (01:05)
[2025-07-20 05:49] LABS: BG BASE EXCESS -17.8 mmol/L (-2.0-3.0); BG CARBOXYHEMOGLOBIN 0.7 % (0.5-1.5); BG DEOXYHEMOGLOBIN 3.6 % (0.0-5.0); BG FRACTION INSPIRED OXYGEN 60; BG HCO3 ACT 10.7 mmol/L (21.0-28.0); BG METHEMOGLOBIN 0.2 % (0.5-1.5); BG OXYGEN SATURATION 96.4 % (94.0-98.0); BG OXYHEMOGLOBIN 95.5 % (94.0-98.0); BG PCO2 35.0 mmHg (35.0-48.0); BG PEEP (cmH2O) 5.0 cmH2O; BG PH 7.105 (7.350-7.450); BG PO2 90.4 mmHg (83.0-108.0); BG SAMPLE SITE RIGHT BRACHIAL; BG TIDAL VOLUME(mL) 450.0 mL; BG TOTAL HEMOGLOBIN 12.3 g/dL (13.5-17.5); BG VENT MODE VENT - AC; BG VENT RATE 26.0 set
[2025-07-20 06:01] LABS: CREATININE 1.9 mg/dL (0.6-1.3); UREA NITROGEN BLOOD 39 mg/dL (9-23)
[2025-07-20 06:03] LABS: ASPARTATE AMINOTRANSFERASE 15 IU/L (<34); BILIRUBIN DIRECT 0.2 mg/dL (<=3.0); BILIRUBIN TOTAL 0.3 mg/dL (0.1-1.0); PHOSPHORUS 5.3 mg/dL (2.5-4.9)
[2025-07-20 06:04] LABS: PROTEIN TOTAL 3.9 g/dL (6.0-8.3)
[2025-07-20 06:05] LABS: T4 FREE 0.89 ng/dL (0.89-1.76)
[2025-07-20 06:35] LABS: PLATELET 59 x1000/uL (130-400); RED BLOOD CELL COUNT 3.02 mill/uL (4.7-6.1); RED CELL DISTRIBUTION WIDTH 18.0 % (11.6-14.6)
[2025-07-20] MEDS: KCL 20MEQ/100ML PREMIX 100 ML IV SCH (08:36)
[2025-07-20 08:50] LABS: BG BASE EXCESS -17.6 mmol/L (-2.0-3.0); BG CARBOXYHEMOGLOBIN 1.2 % (0.5-1.5); BG DEOXYHEMOGLOBIN 1.0 % (0.0-5.0); BG FRACTION INSPIRED OXYGEN 60; BG HCO3 ACT 10.1 mmol/L (21.0-28.0); BG METHEMOGLOBIN 0.2 % (0.5-1.5); BG OXYGEN SATURATION 99.0 % (94.0-98.0); BG OXYHEMOGLOBIN 97.6 % (94.0-98.0); BG PCO2 30.5 mmHg (35.0-48.0); BG PEEP (cmH2O) 5.0 cmH2O; BG PH 7.138 (7.350-7.450); BG PO2 150.1 mmHg (83.0-108.0); BG SAMPLE SITE RIGHT RADIAL; BG TIDAL VOLUME(mL) 450.0 mL; BG TOTAL HEMOGLOBIN 11.9 g/dL (13.5-17.5); BG VENT MODE VENT - AC; BG VENT RATE 26.0 set
[2025-07-20] MEDS: THIAMINE HCL 100 MG/1 ML 2ML VIAL IM SCH (11:45)
[2025-07-20] MEDS: VASOPRESSIN 20 UNIT in SODIUM CHLORIDE 0.9% 99 ML IV PRN (12:30)
[2025-07-20 12:41] LABS: INR 1.8
[2025-07-20] MEDS: ALBUMIN HUMAN 25GM/100ML (25%) IV SCH (14:27)
[2025-07-20] MEDS: FUROSEMIDE 40MG/4ML VIAL IVP SCH (16:34)
[2025-07-20] MEDS: SPIRONOLACTONE 50MG TABLET NG SCH (16:34)
[2025-07-20] MEDS: HYDROCORTISONE SOD SUCCINATE 100 MG/2 ML VIAL IV SCH (21:45)
[2025-07-21] VITALS (102 sets, daily range): BP systolic 73–156; BP diastolic 11–104; PULSE 61–109; RESP 20–55; TEMP 35.1–37.4; O2SAT 94–100
[2025-07-21] MEDS: DEXMEDETOMIDINE 250 ML IV PRN (04:51)
[2025-07-21 06:57] LABS: MEAN PLATELET VOLUME 8.5 fl (7.4-10.4); PLATELET 61 x1000/uL (130-400); RED BLOOD CELL COUNT 2.30 mill/uL (4.7-6.1); RED CELL DISTRIBUTION WIDTH 17.6 % (11.6-14.6)
[2025-07-21 07:21] LABS: HEMOGLOBIN. 7.0 g/dL (14.0-18.0)
[2025-07-21 07:22] LABS: HEMATOCRIT. 20.3 % (42.0-52.0)
[2025-07-21 07:30] LABS: CREATININE 2.2 mg/dL (0.6-1.3); UREA NITROGEN BLOOD 40 mg/dL (9-23)
[2025-07-21 07:32] LABS: PHOSPHORUS 4.2 mg/dL (2.5-4.9)
[2025-07-21 08:25] LABS: BG BASE EXCESS -15.2 mmol/L (-2.0-3.0); BG CARBOXYHEMOGLOBIN 0.7 % (0.5-1.5); BG DEOXYHEMOGLOBIN 3.8 % (0.0-5.0); BG FRACTION INSPIRED OXYGEN 35; BG HCO3 ACT 9.8 mmol/L (21.0-28.0); BG METHEMOGLOBIN 0.3 % (0.5-1.5); BG OXYGEN SATURATION 96.2 % (94.0-98.0); BG OXYHEMOGLOBIN 95.2 % (94.0-98.0); BG PCO2 21.1 mmHg (35.0-48.0); BG PEEP (cmH2O) 5.0 cmH2O; BG PH 7.287 (7.350-7.450); BG PO2 87.0 mmHg (83.0-108.0); BG SAMPLE SITE RIGHT RADIAL; BG TIDAL VOLUME(mL) 450.0 mL; BG TOTAL HEMOGLOBIN 7.9 g/dL (13.5-17.5); BG VENT MODE VENT - AC; BG VENT RATE 26.0 set
[2025-07-21] MEDS ORDERED: FLUCONAZOLE 200MG/100ML PREMIX IV SCH (09:00)
[2025-07-21] MEDS: SODIUM BICARBONATE 8.4% 50MEQ/50ML SYR IV NR (09:36)
[2025-07-21] MEDS: FUROSEMIDE 100MG/10ML VIAL IVP NR (09:42)
[2025-07-21] MEDS: KCL 20MEQ/100ML PREMIX 100 ML IV SCH ×2 (09:43→16:19)
[2025-07-21 10:33] LABS: BAND% 40.0 % (1.0-6.0); LYMPHOCYTES % MANUAL 6.0 % (20.0-50.0); MONOCYTES % MANUAL 4.0 % (2.0-8.0); NEUTROPHILS % MANUAL 50.0 % (45.0-75.0); NUCLEATED RED BLOOD CELLS 3 /100 WBC
[2025-07-21 10:34] LABS: PLATELET ESTIMATE DECREASED
[2025-07-21] MEDS: FLUCONAZOLE 200 MG/100ML BAG 100 ML IV SCH (12:27)
[2025-07-21] MEDS ORDERED: RIFAXIMIN 550 MG TABLET PO SCH (18:15)
[2025-07-21] MEDS: HYDROCORTISONE SOD SUCCINATE 100 MG/2 ML VIAL IV SCH (21:28)
[2025-07-22] VITALS (98 sets, daily range): BP systolic 70–141; BP diastolic 59–98; PULSE 56–102; RESP 20–35; TEMP 34.4–35.6; O2SAT 10–100
[2025-07-22 05:29] LABS: CREATININE 2.4 mg/dL (0.6-1.3); UREA NITROGEN BLOOD 39 mg/dL (9-23)
[2025-07-22 05:31] LABS: ASPARTATE AMINOTRANSFERASE 15 IU/L (<34); BILIRUBIN DIRECT 0.2 mg/dL (<=3.0); BILIRUBIN TOTAL 0.4 mg/dL (0.1-1.0); PROTEIN TOTAL 3.8 g/dL (6.0-8.3)
[2025-07-22 05:32] LABS: BASOPHILS % 0.4 % (0.0-2.0); EOSINOPHILS % 0.0 % (0.0-5.0); HEMATOCRIT. 25.7 % (42.0-52.0); HEMOGLOBIN. 8.5 g/dL (14.0-18.0); LYMPHOCYTES % 9.6 % (20.0-50.0); MEAN PLATELET VOLUME 8.7 fl (7.4-10.4); MONOCYTES % 2.6 % (2.0-8.0); NEUTROPHILS % 87.4 % (40.0-76.0); PLATELET 67 x1000/uL (130-400); RED BLOOD CELL COUNT 2.86 mill/uL (4.7-6.1); RED CELL DISTRIBUTION WIDTH 18.1 % (11.6-14.6)
[2025-07-22] MEDS: RIFAXIMIN 550 MG TABLET NG SCH (06:14)
[2025-07-22 08:46] LABS: BG BASE EXCESS -14.3 mmol/L (-2.0-3.0); BG CARBOXYHEMOGLOBIN 0.2 % (0.5-1.5); BG DEOXYHEMOGLOBIN 1.6 % (0.0-5.0); BG FRACTION INSPIRED OXYGEN 40; BG HCO3 ACT 10.2 mmol/L (21.0-28.0); BG METHEMOGLOBIN 0.1 % (0.5-1.5); BG OXYGEN SATURATION 98.4 % (94.0-98.0); BG OXYHEMOGLOBIN 98.1 % (94.0-98.0); BG PCO2 20.3 mmHg (35.0-48.0); BG PEEP (cmH2O) 5.0 cmH2O; BG PH 7.318 (7.350-7.450); BG PO2 133.3 mmHg (83.0-108.0); BG SAMPLE SITE RIGHT RADIAL; BG TIDAL VOLUME(mL) 450.0 mL; BG TOTAL HEMOGLOBIN 8.9 g/dL (13.5-17.5); BG TOTAL RESPIRATORY RATE 26 b/min; BG VENT MODE VENT - AC; BG VENT RATE 26.0 set
[2025-07-22] MEDS: CITRIC ACID/SODIUM CITRATE SOLN 30ML UDC GT SCH (11:03)
[2025-07-22] MEDS: POTASSIUM CHLORIDE 20 MEQ in DEXT 5% WATER 90 ML IV SCH (11:31)
[2025-07-22] MEDS: FUROSEMIDE 20MG/2ML VIAL IVP SCH (14:30)
[2025-07-22] MEDS ORDERED: LORAZEPAM 2MG/ML UD SYRINGE IV NR (14:45)
[2025-07-22] MEDS ORDERED: PNEUMOCOCCAL 20-VAL CONJ-DIP CRM 0.5ML IM ONE (16:00)
[2025-07-22] MEDS: LEVETIRACETAM 1000MG PREMIX 100 ML IV NR (17:49)
[2025-07-22] MEDS: INSULIN LISPRO 100 UNITS/ML SUBCUT SCH (18:49)
[2025-07-22] MEDS: ALBUMIN HUMAN 25GM/100ML (25%) IV SCH (18:50)
[2025-07-22] MEDS ORDERED: LEVETIRACETAM 500MG/5ML CUP PO SCH (21:00)
[2025-07-22] MEDS ORDERED: VANCOMYCIN 750MG/150ML (BAXTER) IV SCH (21:00)
[2025-07-22] MEDS ORDERED: LEVETIRACETAM 1,000MG in NACL 100ML PREMIX IV SCH (21:00)
[2025-07-22] MEDS: LEVETIRACETAM 1500MG PREMIX 100 ML IV SCH (22:17)
[2025-07-23] VITALS (100 sets, daily range): BP systolic 53–128; BP diastolic 43–93; PULSE 64–104; RESP 20–35; TEMP 36.2–37.2; O2SAT 95–100
[2025-07-23 06:26] LABS: CREATININE 2.5 mg/dL (0.6-1.3); UREA NITROGEN BLOOD 44.0 mg/dL (9-23)
[2025-07-23] MEDS: KCL 20MEQ/100ML PREMIX 100 ML IV SCH ×2 (07:57→23:17)
[2025-07-23] MEDS ORDERED: LORAZEPAM 2MG/ML UD SYRINGE IV PRN (08:45)
[2025-07-23 09:21] LABS: BG BASE EXCESS -10.6 mmol/L (-2.0-3.0); BG CARBOXYHEMOGLOBIN 0.8 % (0.5-1.5); BG DEOXYHEMOGLOBIN 1.3 % (0.0-5.0); BG FRACTION INSPIRED OXYGEN 40; BG HCO3 ACT 13.4 mmol/L (21.0-28.0); BG METHEMOGLOBIN 0.3 % (0.5-1.5); BG OXYGEN SATURATION 98.7 % (94.0-98.0); BG OXYHEMOGLOBIN 97.6 % (94.0-98.0); BG PCO2 23.6 mmHg (35.0-48.0); BG PEEP (cmH2O) 5.0 cmH2O; BG PH 7.373 (7.350-7.450); BG PO2 148.4 mmHg (83.0-108.0); BG SAMPLE SITE RIGHT RADIAL; BG TIDAL VOLUME(mL) 450.0 mL; BG TOTAL HEMOGLOBIN 7.8 g/dL (13.5-17.5); BG TOTAL RESPIRATORY RATE 28 b/min; BG VENT MODE VENT - AC; BG VENT RATE 26.0 set
[2025-07-23 11:42] LABS: BASOPHILS % 0.3 % (0.0-2.0); EOSINOPHILS % 0.2 % (0.0-5.0); HEMATOCRIT. 22.2 % (42.0-52.0); HEMOGLOBIN. 7.7 g/dL (14.0-18.0); LYMPHOCYTES % 7.1 % (20.0-50.0); MEAN PLATELET VOLUME 9.0 fl (7.4-10.4); MONOCYTES % 2.5 % (2.0-8.0); NEUTROPHILS % 89.9 % (40.0-76.0); PLATELET 55 x1000/uL (130-400); RED BLOOD CELL COUNT 2.54 mill/uL (4.7-6.1); RED CELL DISTRIBUTION WIDTH 18.0 % (11.6-14.6)
[2025-07-23] MEDS: METOCLOPRAMIDE HCL 10MG/2ML VIAL IV NR (12:26)
[2025-07-23] MEDS: LORAZEPAM 2MG/ML UD SYRINGE IV PRN (14:00)
[2025-07-23] MEDS: LACOSAMIDE 100MG/10ML ORAL SOLN GT SCH (20:54)
[2025-07-23 22:52] LABS: FOLIC ACID (FOLATE) SERUM 17.05 ng/mL (>5.38); VITAMIN B12 SERUM 1969 pg/mL (211-911)
[2025-07-23] MEDS: POTASSIUM CHLORIDE 20MEQ TABLET SR PO NR (23:17)
[2025-07-24] VITALS (97 sets, daily range): BP systolic 75–141; BP diastolic 62–94; PULSE 50–89; RESP 20–27; TEMP 36.1–36.5; O2SAT 94–100
[2025-07-24 05:21] LABS: RED BLOOD CELL COUNT 2.59 mill/uL (4.7-6.1); RED CELL DISTRIBUTION WIDTH 18.0 % (11.6-14.6)
[2025-07-24 05:40] LABS: CREATININE 2.6 mg/dL (0.6-1.3); UREA NITROGEN BLOOD 45 mg/dL (9-23)
[2025-07-24 05:43] LABS: PHOSPHORUS 2.3 mg/dL (2.5-4.9)
[2025-07-24] MEDS: POTASSIUM CHLORIDE 20MEQ TABLET SR PO NR (08:00)
[2025-07-24] MEDS: KCL 20MEQ/100ML PREMIX 100 ML IV NR (08:01)
[2025-07-24] MEDS: LACTULOSE ENEMA 1,000ML BOTTLE PR SCH (09:00)
[2025-07-24] MEDS ORDERED: ATROPINE SULFATE 1MG/10ML SYR IV PRN (10:00)
[2025-07-24] MEDS: DEXTROSE 5% WATER 1,000 ML IV SCH (11:34)
[2025-07-24 11:53] LABS: PLATELET 46 x1000/uL (130-400)
[2025-07-25] VITALS (102 sets, daily range): BP systolic 47–147; BP diastolic 38–115; PULSE 62–133; RESP 15–29; TEMP 33.6–36.2; O2SAT 95–100
[2025-07-25] MEDS: INSULIN LISPRO 100 UNITS/ML SUBCUT SCH (05:25)
[2025-07-25 05:47] LABS: RED BLOOD CELL COUNT 2.60 mill/uL (4.7-6.1); RED CELL DISTRIBUTION WIDTH 18.0 % (11.6-14.6)
[2025-07-25 06:00] LABS: CREATININE 2.6 mg/dL (0.6-1.3); UREA NITROGEN BLOOD 41 mg/dL (9-23)
[2025-07-25 06:22] LABS: PLATELET 33 x1000/uL (130-400)
[2025-07-25] MEDS: MAGNESIUM 2 G PREMIX 50 ML IV SCH (08:09)
[2025-07-25] MEDS: KCL 20MEQ/100ML PREMIX 100 ML IV SCH ×2 (08:09→15:19)
[2025-07-25] MEDS: IPRATROPIUM/ALBUTEROL 0.5-3(2.5)MG/3ML NEB HHN SCH (09:44)
[2025-07-25 12:37] LABS: INR 1.6
[2025-07-25 12:49] LABS: CREATININE 2.6 mg/dL (0.6-1.3); UREA NITROGEN BLOOD 40 mg/dL (9-23)
[2025-07-25 12:50] LABS: ASPARTATE AMINOTRANSFERASE 36 IU/L (<34)
[2025-07-25 12:51] LABS: BILIRUBIN DIRECT 0.2 mg/dL (<=3.0); BILIRUBIN TOTAL 0.3 mg/dL (0.1-1.0); PROTEIN TOTAL 3.7 g/dL (6.0-8.3)
[2025-07-25] MEDS ORDERED: POTASSIUM CHLORIDE 20MEQ/PACKET GT SCH (15:15)
[2025-07-25 15:27] LABS: BG BASE EXCESS -8.9 mmol/L (-2.0-3.0); BG CARBOXYHEMOGLOBIN 1.7 % (0.5-1.5); BG DEOXYHEMOGLOBIN 2.4 % (0.0-5.0); BG FRACTION INSPIRED OXYGEN 30; BG HCO3 ACT 14.9 mmol/L (21.0-28.0); BG METHEMOGLOBIN 0.1 % (0.5-1.5); BG OXYGEN SATURATION 97.6 % (94.0-98.0); BG OXYHEMOGLOBIN 95.8 % (94.0-98.0); BG PCO2 25.3 mmHg (35.0-48.0); BG PEEP (cmH2O) 5.0 cmH2O; BG PH 7.388 (7.350-7.450); BG PO2 101.1 mmHg (83.0-108.0); BG SAMPLE SITE RIGHT RADIAL; BG TIDAL VOLUME(mL) 450.0 mL; BG TOTAL HEMOGLOBIN 8.4 g/dL (13.5-17.5); BG VENT MODE VENT - AC; BG VENT RATE 26.0 set
[2025-07-25] MEDS: LEVETIRACETAM 1000MG PREMIX 100 ML IV SCH (20:34)
[2025-07-25] MEDS: LEVETIRACETAM 500MG PREMIX 100ML IV SCH (21:36)
[2025-07-26] VITALS (85 sets, daily range): BP systolic 59–136; BP diastolic 30–93; PULSE 69–115; RESP 14–31; TEMP 35.7–37.7; O2SAT 93–100
[2025-07-26 06:43] LABS: CREATININE 2.5 mg/dL (0.6-1.3); UREA NITROGEN BLOOD 34 mg/dL (9-23)
[2025-07-26 06:45] LABS: ASPARTATE AMINOTRANSFERASE 33 IU/L (<34); BILIRUBIN DIRECT 0.1 mg/dL (<=3.0); BILIRUBIN TOTAL 0.2 mg/dL (0.1-1.0); PROTEIN TOTAL 3.8 g/dL (6.0-8.3)
[2025-07-26 07:03] LABS: INR 1.5
[2025-07-26 07:08] LABS: RED BLOOD CELL COUNT 2.88 mill/uL (4.7-6.1); RED CELL DISTRIBUTION WIDTH 18.3 % (11.6-14.6)
[2025-07-26 07:29] LABS: PLATELET 61 x1000/uL (130-400)
[2025-07-26] MEDS: POTASSIUM CHLORIDE 20MEQ/PACKET NG SCH (09:50)
[2025-07-26] MEDS: MAGNESIUM 2 G PREMIX 50 ML IV NR (15:00)
[2025-07-27] VITALS (105 sets, daily range): BP systolic 31–235; BP diastolic 16–173; PULSE 43–111; RESP 20–29; TEMP 34.7–36.6; O2SAT 96–100
[2025-07-27] MEDS: LEVETIRACETAM 1500MG PREMIX 100 ML IV SCH (08:17)
[2025-07-27] MEDS ORDERED: DOPAMINE 400MG/250ML PREMIX 250 ML IV PRN (09:15)
[2025-07-27 10:39] LABS: BASOPHILS % 0.2 % (0.0-2.0); EOSINOPHILS % 0.8 % (0.0-5.0); HEMATOCRIT. 23.2 % (42.0-52.0); HEMOGLOBIN. 7.6 g/dL (14.0-18.0); LYMPHOCYTES % 9.4 % (20.0-50.0); MEAN PLATELET VOLUME 10.3 fl (7.4-10.4); MONOCYTES % 2.4 % (2.0-8.0); NEUTROPHILS % 87.2 % (40.0-76.0); PLATELET 73 x1000/uL (130-400); RED BLOOD CELL COUNT 2.61 mill/uL (4.7-6.1); RED CELL DISTRIBUTION WIDTH 19.2 % (11.6-14.6)
[2025-07-27 10:47] LABS: INR 1.5
[2025-07-27 11:05] LABS: CREATININE 2.1 mg/dL (0.6-1.3); UREA NITROGEN BLOOD 36 mg/dL (9-23)
[2025-07-27 11:07] LABS: ASPARTATE AMINOTRANSFERASE 33 IU/L (<34)
[2025-07-27 11:08] LABS: BILIRUBIN TOTAL 0.3 mg/dL (0.1-1.0); PROTEIN TOTAL 2.9 g/dL (6.0-8.3)
[2025-07-27] MEDS: LEVETIRACETAM 500MG/5ML CUP PO SCH (21:40)
[2025-07-28] VITALS (94 sets, daily range): BP systolic 51–165; BP diastolic 24–135; PULSE 57–109; RESP 24–27; TEMP 36.2–37.4; O2SAT 96–100
[2025-07-28 07:35] LABS: HEMATOCRIT. 25.3 % (42.0-52.0); HEMOGLOBIN. 8.5 g/dL (14.0-18.0); MEAN PLATELET VOLUME 10.9 fl (7.4-10.4); RED BLOOD CELL COUNT 2.87 mill/uL (4.7-6.1); RED CELL DISTRIBUTION WIDTH 19.0 % (11.6-14.6)
[2025-07-28 07:52] LABS: CREATININE 1.8 mg/dL (0.6-1.3)
[2025-07-28 07:53] LABS: UREA NITROGEN BLOOD 27 mg/dL (9-23)
[2025-07-28 07:54] LABS: PLATELET 116 x1000/uL (130-400)
[2025-07-28 07:55] LABS: PHOSPHORUS 2.7 mg/dL (2.5-4.9)
[2025-07-28] MEDS: CITRIC ACID/SODIUM CITRATE SOLN 30ML UDC GT SCH (09:41)
[2025-07-28] MEDS: FUROSEMIDE 40MG/4ML VIAL IVP SCH (10:08)
[2025-07-28 10:26] LABS: BAND% 9.0 % (1.0-6.0); LYMPHOCYTES % MANUAL 8.0 % (20.0-50.0); NEUTROPHILS % MANUAL 83.0 % (45.0-75.0); NUCLEATED RED BLOOD CELLS 3 /100 WBC; PLATELET ESTIMATE DECREASED
[2025-07-28 13:26] LABS: INR 1.3
[2025-07-28] MEDS: LORAZEPAM 2MG/ML UD SYRINGE IV SCH (13:49)
[2025-07-29] VITALS (112 sets, daily range): BP systolic 34–177; BP diastolic 22–116; PULSE 56–115; RESP 20–28; TEMP 36.3–37; O2SAT 94–100
[2025-07-29 06:15] LABS: HEMATOCRIT. 26.4 % (42.0-52.0); HEMOGLOBIN. 8.7 g/dL (14.0-18.0); MEAN PLATELET VOLUME 10.3 fl (7.4-10.4); PLATELET 186 x1000/uL (130-400); RED BLOOD CELL COUNT 2.98 mill/uL (4.7-6.1); RED CELL DISTRIBUTION WIDTH 19.4 % (11.6-14.6)
[2025-07-29 06:34] LABS: CREATININE 1.6 mg/dL (0.6-1.3); UREA NITROGEN BLOOD 34.0 mg/dL (9-23)
[2025-07-29 11:47] LABS: BAND% 1.0 % (1.0-6.0); LYMPHOCYTES % MANUAL 14.0 % (20.0-50.0); MONOCYTES % MANUAL 7.0 % (2.0-8.0); NEUTROPHILS % MANUAL 78.0 % (45.0-75.0); NUCLEATED RED BLOOD CELLS 13 /100 WBC; PLATELET ESTIMATE NORMAL
[2025-07-29] MEDS: FUROSEMIDE 40MG/4ML VIAL IVP SCH (21:06)
[2025-07-30] VITALS (126 sets, daily range): BP systolic 47–130; BP diastolic 27–104; PULSE 64–130; RESP 18–30; TEMP 36.3–36.6; O2SAT 97–100
[2025-07-30 05:33] LABS: HEMATOCRIT. 26.0 % (42.0-52.0); HEMOGLOBIN. 8.6 g/dL (14.0-18.0); MEAN PLATELET VOLUME 10.3 fl (7.4-10.4); PLATELET 222 x1000/uL (130-400); RED BLOOD CELL COUNT 2.92 mill/uL (4.7-6.1); RED CELL DISTRIBUTION WIDTH 20.2 % (11.6-14.6)
[2025-07-30 05:42] LABS: INR 1.2
[2025-07-30 06:08] LABS: CREATININE 1.5 mg/dL (0.6-1.3)
[2025-07-30 06:09] LABS: UREA NITROGEN BLOOD 32 mg/dL (9-23)
[2025-07-30 06:10] LABS: ASPARTATE AMINOTRANSFERASE 51 IU/L (<34)
[2025-07-30 06:11] LABS: BILIRUBIN TOTAL 0.3 mg/dL (0.1-1.0); PROTEIN TOTAL 4.1 g/dL (6.0-8.3)
[2025-07-30 10:03] LABS: BG BASE EXCESS -3.2 mmol/L (-2.0-3.0); BG CARBOXYHEMOGLOBIN 0.3 % (0.5-1.5); BG DEOXYHEMOGLOBIN 2.2 % (0.0-5.0); BG FRACTION INSPIRED OXYGEN 28; BG HCO3 ACT 18.9 mmol/L (21.0-28.0); BG METHEMOGLOBIN 0.3 % (0.5-1.5); BG OXYGEN SATURATION 97.8 % (94.0-98.0); BG OXYHEMOGLOBIN 97.2 % (94.0-98.0); BG PCO2 24.4 mmHg (35.0-48.0); BG PEEP (cmH2O) 5.0 cmH2O; BG PH 7.506 (7.350-7.450); BG PO2 103.5 mmHg (83.0-108.0); BG SAMPLE SITE RIGHT RADIAL; BG TIDAL VOLUME(mL) 450.0 mL; BG TOTAL HEMOGLOBIN 9.4 g/dL (13.5-17.5); BG VENT MODE VENT - AC; BG VENT RATE 26.0 set
[2025-07-30 12:26] LABS: BAND% 17.0 % (1.0-6.0); LYMPHOCYTES % MANUAL 9.0 % (20.0-50.0); MONOCYTES % MANUAL 1.0 % (2.0-8.0); NEUTROPHILS % MANUAL 73.0 % (45.0-75.0); NUCLEATED RED BLOOD CELLS 4 /100 WBC
[2025-07-30 12:28] LABS: PLATELET ESTIMATE NORMAL
[2025-07-30] MEDS ORDERED: VANCOMYCIN HCL 1GM VIAL PO SCH (18:00)
[2025-07-30] MEDS ORDERED: PHENYLEPHRINE 50 MG in DEXT 5% WATER 245 ML IV PRN (18:15)
[2025-07-30] MEDS: DILTIAZEM HCL 5MG/ML 5ML VIAL IV NR (19:03)
[2025-07-30] MEDS: LACTATED RINGERS 1,000 ML IV ONE (19:28)
[2025-07-30] MEDS: VANCOMYCIN 125MG/2.5ML ORAL SYR PO SCH (21:12)
[2025-07-31] VITALS (120 sets, daily range): BP systolic 46–133; BP diastolic 23–102; PULSE 62–113; RESP 16–29; TEMP 36.3–36.7; O2SAT 88–100
[2025-07-31 05:31] LABS: HEMATOCRIT. 25.8 % (42.0-52.0); HEMOGLOBIN. 8.3 g/dL (14.0-18.0); MEAN PLATELET VOLUME 10.3 fl (7.4-10.4); PLATELET 178 x1000/uL (130-400); RED BLOOD CELL COUNT 2.80 mill/uL (4.7-6.1); RED CELL DISTRIBUTION WIDTH 20.4 % (11.6-14.6)
[2025-07-31 05:44] LABS: INR 1.2
[2025-07-31 05:49] LABS: CREATININE 1.6 mg/dL (0.6-1.3); UREA NITROGEN BLOOD 33 mg/dL (9-23)
[2025-07-31 05:51] LABS: ASPARTATE AMINOTRANSFERASE 57 IU/L (<34)
[2025-07-31 05:52] LABS: BILIRUBIN TOTAL 0.2 mg/dL (0.1-1.0); PROTEIN TOTAL 4.0 g/dL (6.0-8.3)
[2025-07-31] MEDS: KCL 20MEQ/100ML PREMIX 100 ML IV NR (07:25)
[2025-07-31] MEDS: DEXTROSE 5% WATER 1,000 ML IV SCH (09:21)
[2025-07-31 09:27] LABS: BG BASE EXCESS -4.4 mmol/L (-2.0-3.0); BG CARBOXYHEMOGLOBIN 0.8 % (0.5-1.5); BG DEOXYHEMOGLOBIN 8.9 % (0.0-5.0); BG FRACTION INSPIRED OXYGEN 28; BG HCO3 ACT 19.8 mmol/L (21.0-28.0); BG METHEMOGLOBIN 0.2 % (0.5-1.5); BG OXYGEN SATURATION 91.0 % (94.0-98.0); BG OXYHEMOGLOBIN 90.1 % (94.0-98.0); BG PCO2 32.8 mmHg (35.0-48.0); BG PEEP (cmH2O) 5.0 cmH2O; BG PH 7.398 (7.350-7.450); BG PO2 63.4 mmHg (83.0-108.0); BG SAMPLE SITE RIGHT BRACHIAL; BG TIDAL VOLUME(mL) 450.0 mL; BG TOTAL HEMOGLOBIN 9.2 g/dL (13.5-17.5); BG TOTAL RESPIRATORY RATE 20 b/min; BG VENT MODE VENT - AC; BG VENT RATE 20.0 set
[2025-07-31 16:16] LABS: BAND% 5.0 % (1.0-6.0); LYMPHOCYTES % MANUAL 1.0 % (20.0-50.0); MONOCYTES % MANUAL 1.0 % (2.0-8.0); NEUTROPHILS % MANUAL 93.0 % (45.0-75.0); PLATELET ESTIMATE NORMAL
[2025-07-31] MEDS: LACTULOSE 20G/30ML UDC NG SCH (20:40)
[2025-08-01] VITALS (108 sets, daily range): BP systolic 48–123; BP diastolic 28–99; PULSE 51–90; RESP 0–26; TEMP 36.2–36.7; O2SAT 98–100
[2025-08-01 05:31] LABS: HEMATOCRIT. 26.4 % (42.0-52.0); HEMOGLOBIN. 8.6 g/dL (14.0-18.0); MEAN PLATELET VOLUME 10.5 fl (7.4-10.4); PLATELET 164 x1000/uL (130-400); RED BLOOD CELL COUNT 2.89 mill/uL (4.7-6.1); RED CELL DISTRIBUTION WIDTH 21.6 % (11.6-14.6)
[2025-08-01 05:32] LABS: CREATININE 1.5 mg/dL (0.6-1.3); UREA NITROGEN BLOOD 33 mg/dL (9-23)
[2025-08-01 05:34] LABS: ASPARTATE AMINOTRANSFERASE 43 IU/L (<34); BILIRUBIN DIRECT < 0.1 mg/dL (<=3.0); BILIRUBIN TOTAL 0.2 mg/dL (0.1-1.0); PHOSPHORUS 4.4 mg/dL (2.5-4.9); PROTEIN TOTAL 4.0 g/dL (6.0-8.3)
[2025-08-01] MEDS: KCL 20MEQ/100ML PREMIX 100 ML IV SCH (09:23)
[2025-08-01 10:52] LABS: INR 1.3
[2025-08-01] MEDS: MAGNESIUM 2 G PREMIX 50 ML IV SCH (16:05)
[2025-08-01 21:25] LABS: BAND% 23.0 % (1.0-6.0); LYMPHOCYTES % MANUAL 3.0 % (20.0-50.0); MONOCYTES % MANUAL 1.0 % (2.0-8.0); NEUTROPHILS % MANUAL 73.0 % (45.0-75.0); PLATELET ESTIMATE NORMAL
[2025-08-02] VITALS (104 sets, daily range): BP systolic 54–119; BP diastolic 44–102; PULSE 54–90; RESP 0–30; TEMP 36–36.6; O2SAT 95–100
[2025-08-02 05:37] LABS: HEMATOCRIT. 27.0 % (42.0-52.0); HEMOGLOBIN. 8.9 g/dL (14.0-18.0); MEAN PLATELET VOLUME 10.5 fl (7.4-10.4); PLATELET 162 x1000/uL (130-400); RED BLOOD CELL COUNT 2.94 mill/uL (4.7-6.1); RED CELL DISTRIBUTION WIDTH 20.9 % (11.6-14.6)
[2025-08-02 05:53] LABS: CREATININE 1.5 mg/dL (0.6-1.3); UREA NITROGEN BLOOD 32 mg/dL (9-23)
[2025-08-02 05:55] LABS: PHOSPHORUS 4.4 mg/dL (2.5-4.9)
[2025-08-02 07:52] LABS: BAND% 39.0 % (1.0-6.0); EOSINOPHILS % MANUAL 2.0 % (0.0-5.0); LYMPHOCYTES % MANUAL 3.0 % (20.0-50.0); MONOCYTES % MANUAL 1.0 % (2.0-8.0); MYELOCYTES % 1.0 % (0-0); NEUTROPHILS % MANUAL 54.0 % (45.0-75.0); NUCLEATED RED BLOOD CELLS 4 /100 WBC; PLATELET ESTIMATE NORMAL
[2025-08-02] MEDS: KCL 20MEQ/100ML PREMIX 100 ML IV SCH (08:22)
[2025-08-02] MEDS: MAGNESIUM 2 G PREMIX 50 ML IV NR (08:22)
[2025-08-02] MEDS: MIDODRINE HCL 5MG TABLET NG SCH (08:24)
[2025-08-02 09:37] LABS: BG BASE EXCESS -5.2 mmol/L (-2.0-3.0); BG CARBOXYHEMOGLOBIN 0.4 % (0.5-1.5); BG DEOXYHEMOGLOBIN 1.4 % (0.0-5.0); BG FRACTION INSPIRED OXYGEN 35; BG HCO3 ACT 18.9 mmol/L (21.0-28.0); BG METHEMOGLOBIN 0.3 % (0.5-1.5); BG OXYGEN SATURATION 98.6 % (94.0-98.0); BG OXYHEMOGLOBIN 97.9 % (94.0-98.0); BG PCO2 31.7 mmHg (35.0-48.0); BG PEEP (cmH2O) 5.0 cmH2O; BG PH 7.393 (7.350-7.450); BG PO2 136.6 mmHg (83.0-108.0); BG SAMPLE SITE LEFT RADIAL; BG TIDAL VOLUME(mL) 450.0 mL; BG TOTAL HEMOGLOBIN 10.2 g/dL (13.5-17.5); BG VENT MODE VENT - AC; BG VENT RATE 16.0 set
[2025-08-02] MEDS ORDERED: SODIUM CHLORIDE 0.45% 250 ML IV ONE (17:45)
[2025-08-02] MEDS: SODIUM CHLORIDE 0.45% 250 ML IV ONE (18:44)
[2025-08-03] VITALS (103 sets, daily range): BP systolic 57–119; BP diastolic 36–84; PULSE 49–73; RESP 10–29; TEMP 31.4–36.3; O2SAT 86–100
[2025-08-03] MEDS: LORAZEPAM 2MG/ML UD SYRINGE IV PRN (00:48)
[2025-08-03 05:29] LABS: HEMATOCRIT. 26.6 % (42.0-52.0); HEMOGLOBIN. 8.3 g/dL (14.0-18.0); MEAN PLATELET VOLUME 10.5 fl (7.4-10.4); PLATELET 121 x1000/uL (130-400); RED BLOOD CELL COUNT 2.83 mill/uL (4.7-6.1); RED CELL DISTRIBUTION WIDTH 21.5 % (11.6-14.6)
[2025-08-03 05:46] LABS: CREATININE 1.3 mg/dL (0.6-1.3)
[2025-08-03 05:47] LABS: UREA NITROGEN BLOOD 29 mg/dL (9-23)
[2025-08-03 05:50] LABS: INR 1.3
[2025-08-03] MEDS: VASOPRESSIN 20 UNIT in SODIUM CHLORIDE 0.9% 99 ML IV PRN (05:57)
[2025-08-03] MEDS: SODIUM CHLORIDE 0.45% 1,000 ML IV ONE (08:57)
[2025-08-03] MEDS: PHENYLEPHRINE 100 MG in DEXT 5% WATER 240 ML IV PRN (08:58)
[2025-08-03] MEDS: LACTULOSE 20G/30ML UDC NG SCH (08:59)
[2025-08-03] MEDS ORDERED: POTASSIUM CHLORIDE 40 MEQ in DEXT 5% WATER 230 ML IV ONE (09:30)
[2025-08-03] MEDS: POTASSIUM CHLORIDE 20MEQ/PACKET PO NR (09:45)
[2025-08-03] MEDS: KCL 20MEQ/100ML X 2 FOR TOTAL KCL 40MEQ/200ML IV SCH (10:02)
[2025-08-03 10:12] LABS: BAND% 38.0 % (1.0-6.0); LYMPHOCYTES % MANUAL 3.0 % (20.0-50.0); NEUTROPHILS % MANUAL 59.0 % (45.0-75.0); PLATELET ESTIMATE SLIGHTLY DECREASED
[2025-08-03] MEDS: DEXT 5%/0.45% NACL KCL 40MEQ/L 1,000 ML IV SCH (10:49)
[2025-08-03] MEDS ORDERED: CALCIUM CHLORIDE 1GM/10ML SYR IV ONE (11:52)
[2025-08-03] MEDS ORDERED: ROCURONIUM BROMIDE 10MG/ML VIAL 5ML IV ONE (11:52)
[2025-08-03] MEDS ORDERED: FENTANYL CITRATE/PF 50MCG/ML 2ML VIAL ONE (12:02)
[2025-08-03 17:07] LABS: ALK PHOS BONE SPECIFIC 57.7 ug/L (7.6-24.8)
[2025-08-03] MEDS: MEROPENEM 1G/100ML 100 ML IV SCH (17:23)
[2025-08-04] VITALS (106 sets, daily range): BP systolic 41–125; BP diastolic 24–102; PULSE 67–128; RESP 0–31; TEMP 33.3–36; O2SAT 39–100
[2025-08-04 06:50] LABS: CREATININE 1.3 mg/dL (0.6-1.3); UREA NITROGEN BLOOD 24 mg/dL (9-23)
[2025-08-04 06:53] LABS: PHOSPHORUS 4.1 mg/dL (2.5-4.9)
[2025-08-04 07:09] LABS: HEMATOCRIT. 28.3 % (42.0-52.0); HEMOGLOBIN. 9.1 g/dL (14.0-18.0); MEAN PLATELET VOLUME 10.6 fl (7.4-10.4); PLATELET 138 x1000/uL (130-400); RED BLOOD CELL COUNT 3.05 mill/uL (4.7-6.1); RED CELL DISTRIBUTION WIDTH 21.3 % (11.6-14.6)
[2025-08-04 08:56] LABS: BG BASE EXCESS -9.7 mmol/L (-2.0-3.0); BG CARBOXYHEMOGLOBIN 0.1 % (0.5-1.5); BG DEOXYHEMOGLOBIN 5.7 % (0.0-5.0); BG FRACTION INSPIRED OXYGEN 45; BG HCO3 ACT 14.8 mmol/L (21.0-28.0); BG METHEMOGLOBIN 0.1 % (0.5-1.5); BG OXYGEN SATURATION 94.3 % (94.0-98.0); BG OXYHEMOGLOBIN 94.1 % (94.0-98.0); BG PCO2 27.9 mmHg (35.0-48.0); BG PEEP (cmH2O) 5.0 cmH2O; BG PH 7.343 (7.350-7.450); BG PO2 73.8 mmHg (83.0-108.0); BG SAMPLE SITE RIGHT RADIAL; BG TIDAL VOLUME(mL) 450.0 mL; BG TOTAL HEMOGLOBIN 9.8 g/dL (13.5-17.5); BG VENT MODE VENT - AC; BG VENT RATE 16.0 set
[2025-08-04] MEDS ORDERED: SODIUM CHLORIDE 0.9% 500 ML IV NR (09:00)
[2025-08-04] MEDS: NOREPINEPHRINE 32 MG in DEXT 5% WATER 218 ML IV PRN (09:22)
[2025-08-04] MEDS: EPINEPHRINE 5 MG in SODIUM CHLORIDE 0.9% 245 ML IV PRN (10:53)
[2025-08-04 11:16] LABS: BAND% 35.0 % (1.0-6.0); LYMPHOCYTES % MANUAL 3.0 % (20.0-50.0); MYELOCYTES % 1.0 % (0-0); NEUTROPHILS % MANUAL 61.0 % (45.0-75.0); NUCLEATED RED BLOOD CELLS 7 /100 WBC; PLATELET ESTIMATE NORMAL
[2025-08-04] MEDS: SODIUM BICARBONATE 100 MEQ in DEXTROSE 5% WATER 900 ML IV SCH (11:46)
[2025-08-04] MEDS: DEXT 10% WATER 1,000 ML IV SCH (12:40)
[2025-08-04] MEDS: DOPAMINE 400MG/250ML PREMIX 250 ML IV PRN (13:23)
[2025-08-04] MEDS: LORAZEPAM 2MG/ML UD SYRINGE IV PRN (15:40)
[2025-08-04] MEDS: SODIUM BICARBONATE 8.4% 50MEQ/50ML SYR IV SCH (16:01)
[2025-08-04] MEDS: SODIUM CHLORIDE 0.9% 1,000 ML IV ONE (16:14)
[2025-08-04] MEDS: EPINEPHRINE 10 MG in SODIUM CHLORIDE 0.9% 240 ML IV PRN (16:56)
[2025-08-04] MEDS: HYDROCORTISONE SOD SUCCINATE 100 MG/2 ML VIAL IV SCH (18:27)
[2025-08-05] VITALS (52 sets, daily range): BP systolic 59–102; BP diastolic 13–84; PULSE 70–89; RESP 5–32; TEMP 32.9–33.1; O2SAT 51–82
[2025-08-05 05:53] LABS: ASPARTATE AMINOTRANSFERASE 72 IU/L (<34); BILIRUBIN DIRECT 0.2 mg/dL (<=3.0); BILIRUBIN TOTAL 0.3 mg/dL (0.1-1.0); PROTEIN TOTAL 2.5 g/dL (6.0-8.3)
[2025-08-05 05:55] LABS: HEMATOCRIT. 26.5 % (42.0-52.0); HEMOGLOBIN. 7.4 g/dL (14.0-18.0); MEAN PLATELET VOLUME 11.0 fl (7.4-10.4); PLATELET 97 x1000/uL (130-400); RED BLOOD CELL COUNT 2.55 mill/uL (4.7-6.1); RED CELL DISTRIBUTION WIDTH 22.0 % (11.6-14.6)
[2025-08-05 06:08] LABS: CREATININE 1.4 mg/dL (0.6-1.3); UREA NITROGEN BLOOD 22 mg/dL (9-23)
[2025-08-05 06:39] LABS: PHOSPHORUS 5.5 mg/dL (2.5-4.9)
[2025-08-05] MEDS: SODIUM BICARBONATE 8.4% 50MEQ/50ML SYR IV SCH (08:14)
[2025-08-05] MEDS: SODIUM CHLORIDE 0.9% 1,000 ML IV ONE (09:20)
[2025-08-05 09:28] LABS: BG BASE EXCESS -25.6 mmol/L (-2.0-3.0); BG CARBOXYHEMOGLOBIN 0.6 % (0.5-1.5); BG DEOXYHEMOGLOBIN 12.9 % (0.0-5.0); BG FRACTION INSPIRED OXYGEN 100; BG HCO3 ACT 7.2 mmol/L (21.0-28.0); BG METHEMOGLOBIN 0.2 % (0.5-1.5); BG OXYGEN SATURATION 87.0 % (94.0-98.0); BG OXYHEMOGLOBIN 86.3 % (94.0-98.0); BG PCO2 45.2 mmHg (35.0-48.0); BG PEEP (cmH2O) 5.0 cmH2O; BG PH 6.823 (7.350-7.450); BG PO2 72.1 mmHg (83.0-108.0); BG SAMPLE SITE RIGHT RADIAL; BG TIDAL VOLUME(mL) 450.0 mL; BG TOTAL HEMOGLOBIN 8.5 g/dL (13.5-17.5); BG VENT MODE VENT - AC; BG VENT RATE 20.0 set
[2025-08-05 09:58] LABS: BAND% 25.0 % (1.0-6.0); LYMPHOCYTES % MANUAL 14.0 % (20.0-50.0); MONOCYTES % MANUAL 3.0 % (2.0-8.0); NEUTROPHILS % MANUAL 58.0 % (45.0-75.0); NUCLEATED RED BLOOD CELLS 21 /100 WBC; PLATELET ESTIMATE DECREASED
[2025-08-05] MEDS: LEVETIRACETAM 1500MG PREMIX 100 ML IV SCH (10:46)
[2025-08-05] MEDS: DOPAMINE 800MG PREMIX (DOUBLE) 250 ML IV PRN (11:13)
[2025-08-05] MEDS ORDERED: PROPOFOL 10MG/ML 100ML 100 ML IV PRN (16:00)
== END 2025-08-05 20:13 | DRG 3 ==
LOC: ER 17:12 → EDBEDREQ 17:46 → MICUNO 19:28 → EDBEDREQ 19:46 → EDBEDREQTM 19:46 → CANRESERV 21:37 → ENRESERV 21:37
PROVIDERS: ADMIT Internal Medicine; ATTEND Internal Medicine
PROC: 06HY33Z Insertion of Infusion Device into Lower Vein, Percutaneous Approach (ICD-10-PCS; 2025-07-17)
PROC: B54BZZA Ultrasonography of Right Lower Extremity Veins, Guidance (ICD-10-PCS; 2025-07-17)
PROC: 30233N1 Transfusion of Nonautologous Red Blood Cells into Peripheral Vein, Percutaneous Approach (ICD-10-PCS; 2025-07-17)
PROC: 30233K1 Transfusion of Nonautologous Frozen Plasma into Peripheral Vein, Percutaneous Approach (ICD-10-PCS; 2025-07-18)
PROC: 5A1955Z Respiratory Ventilation, Greater than 96 Consecutive Hours (ICD-10-PCS; principal; 2025-07-19)
PROC: 0BH17EZ Insertion of Endotracheal Airway into Trachea, Via Natural or Artificial Opening (ICD-10-PCS; 2025-07-19)
PROC: 4A00X4Z Measurement of Central Nervous Electrical Activity, External Approach (ICD-10-PCS; 2025-07-24)
PROC: 05HY33Z Insertion of Infusion Device into Upper Vein, Percutaneous Approach (ICD-10-PCS; 2025-07-25)
PROC: B54NZZA Ultrasonography of Left Upper Extremity Veins, Guidance (ICD-10-PCS; 2025-07-25)
PROC: 0B110F4 Bypass Trachea to Cutaneous with Tracheostomy Device, Open Approach (ICD-10-PCS; 2025-08-03)
PROC: 0GBJ0ZZ Excision of Thyroid Gland Isthmus, Open Approach (ICD-10-PCS; 2025-08-03)
PROC: 5A12012 Performance of Cardiac Output, Single, Manual (ICD-10-PCS; 2025-08-05)
DX: A41.9 Sepsis, unspecified organism (principal); L89.153 Pressure ulcer of sacral region, stage 3; E43 Unspecified severe protein-calorie malnutrition; R57.1 Hypovolemic shock; G93.41 Metabolic encephalopathy; J18.9 Pneumonia, unspecified organism; R65.21 Severe sepsis with septic shock; J96.01 Acute respiratory failure with hypoxia; N17.0 Acute kidney failure with tubular necrosis; G40.919 Epilepsy, unspecified, intractable, without status epilepticus; D68.4 Acquired coagulation factor deficiency; J90 Pleural effusion, not elsewhere classified; N39.0 Urinary tract infection, site not specified; D69.59 Other secondary thrombocytopenia; E11.649 Type 2 diabetes mellitus with hypoglycemia without coma; K74.60 Unspecified cirrhosis of liver; N18.9 Chronic kidney disease, unspecified; I12.9 Hypertensive chronic kidney disease with stage 1 through stage 4 chronic kidney disease, or unspecified chronic kidney disease; E03.9 Hypothyroidism, unspecified; Z95.828 Presence of other vascular implants and grafts; D62 Acute posthemorrhagic anemia; E87.4 Mixed disorder of acid-base balance; E87.0 Hyperosmolality and hypernatremia; E83.42 Hypomagnesemia; E11.22 Type 2 diabetes mellitus with diabetic chronic kidney disease; E11.65 Type 2 diabetes mellitus with hyperglycemia; E87.6 Hypokalemia; Z20.822 Contact with and (suspected) exposure to COVID-19; E87.70 Fluid overload, unspecified; F41.9 Anxiety disorder, unspecified; N32.89 Other specified disorders of bladder; R31.9 Hematuria, unspecified; R13.12 Dysphagia, oropharyngeal phase; R58 Hemorrhage, not elsewhere classified; S80.12XA Contusion of left lower leg, initial encounter; S80.11XA Contusion of right lower leg, initial encounter; S60.222A Contusion of left hand, initial encounter; E88.09 Other disorders of plasma-protein metabolism, not elsewhere classified; R62.7 Adult failure to thrive; N40.0 Benign prostatic hyperplasia without lower urinary tract symptoms; I25.2 Old myocardial infarction; Z68.28 Body mass index [BMI] 28.0-28.9, adult; Z82.49 Family history of ischemic heart disease and other diseases of the circulatory system; Z86.718 Personal history of other venous thrombosis and embolism; S60.221A Contusion of right hand, initial encounter; X58.XXXA Exposure to other specified factors, initial encounter; Y93.89 Activity, other specified; Y92.89 Other specified places as the place of occurrence of the external cause; Y99.8 Other external cause status
CPT/HCPCS: 31720; 36415; 36556; 36573; 36600; 71045; 71250; 74176; 76604; 76700; 80048; 80053; 80076; 80202; 80305; 80320; 80339; 81003; 82010; 82105; 82140; 82330; 82375; 82533; 82550; 82553; 82607; 82728; 82746; 82805; 82962; 83036; 83540; 83550; 83605; 83735; 83880; 83930; 83935; 84080; 84100; 84132; 84145; 84439; 84443; 84484; 84550; 85014; 85018; 85025; 85027; 85044; 85379; 85384; 86022; 86705; 86709; 86850; 86900; 86920; 86927; 87070; 87077; 87106; 87186; 87340; 87420; 87426; 87804; 92950; 93005; 93970; 94002; 94003; 94070; 94640; 94664; 95816; 96361; 96374; 99291; 99292; A4606; A6261; C1725; J0461; J0612; J0692; J1265; J1308; J1450; J1720; J1815; J1938; J1953; J2060; J2185; J2371; J2470; J2543; J2765; J3010; J3373; J3411; J3430; J3475; J3480; J3490; J7030; J7040; J7050; J7060; J7070; P9016; P9017; P9047; A4217; A5200; G0480